=== PATIENT | female | born 1995 | race Caucasian/White ===

== ENCOUNTER 2017-06-21 15:48 | Inpatient (IN) | payer SELFPAY ==
[~2017-06-21] VITALS: Ht 160 cm; Wt 64.0 kg
[2017-06-21 17:23] VITALS: BP 142/84
[2017-06-21] MEDS ORDERED: ONDANSETRON PF 4 MG/2 ML VIAL. IV PRN (18:45)
[2017-06-21] MEDS ORDERED: MORPHINE SULFATE 2 MG/ML DISP.SYRIN. IV PRN (18:45)
[2017-06-21 19:00] VITALS: BP 102/67
[2017-06-21] MEDS: POTASSIUM CL 30MEQ D5-0.45NACL 1,000 ML IV SCH (19:35)
--- NOTE | 2017-06-21 20:40 | HP ---
ADMIT DATE: 06/21/2017 CHIEF COMPLAINT: Abdominal pain, nausea, vomiting. HISTORY OF PRESENT ILLNESS: The patient is a 22-year-old fairly healthy woman who presented to the Emergency Room twice in the past 4 days with abdominal pain. She relates that she started having right-sided abdominal pain accompanied by nausea and vomiting since Tuesday. She actually went to the Emergency Room on Tuesday and was told that this was probably a viral gastroenteritis and symptoms should resolve. However, as this not occurred and pain actually got more intense and she vomited blood x 1 this morning, she decided to come back to the Emergency Room. As she is living in [place], [facility] was the closest location for her. She denies any fevers, but had shaking chills off and on. She also admits to in frequent diarrhea over the past 4 days, loose watery with mucus. Denies any blood. She denies any other symptoms including shortness of breath, chest pain, upper respiratory symptoms or dysuria. In her workup in the Emergency Room, CAT scan actually did not show appendicitis or cholecystitis, but some signs of enteritis. In her labs, the only abnormality was a total bilirubin of 4.0 with completely normal transaminases and alkaline phosphatase. The patient is therefore transferred to [facility] for further workup including surgical and gastroenterology evaluation. PAST MEDICAL HISTORY: None. FAMILY HISTORY: No significant disorders in parents. Grandparents with bladder cancer, heart disease, and strokes. SOCIAL HISTORY: Lives with family. No toxic habits, never smoked. ALLERGIES: No known drug allergies. MEDICATIONS: None. REVIEW OF SYSTEMS: Positive as per HPI. Rest of organ system review is completely negative. PHYSICAL EXAMINATION: VITAL SIGNS: From today show a blood pressure of 142/84, heart rate of 115, respiratory rate at 20. She is afebrile. GENERAL: This is a petite 22-year-old well-nourished woman, alert and oriented, in no acute distress. HEENT: Shows no scleral icterus. Oral mucosa is pink and moist. NECK: Supple. LUNGS: Clear to auscultation bilateral. HEART: Tachycardic. ABDOMEN: Has moderate to severe tenderness, increasing in severity on right side from the lower to upper quadrant. EXTREMITIES: Show no edema. SKIN: Warm, soft and dry without any rash. LABORATORY DATA: From [facility] were reviewed with pertinent labs as above. IMAGING: CT report from [facility] reviewed. ASSESSMENT AND PLAN: The patient is a 22-year-old with severe abdominal pain accompanied by nausea, who re-presented to the Emergency Room for the second time in 4 days. Her nausea currently is well controlled after having received Zofran. She has not received any pain medications in the ER at [facility]. We will make Toradol and morphine available for her. She will be kept n.p.o. for the time being. IV fluids will be started. The etiology of her abdominal pain is somewhat unclear. No sign of cholecystitis or appendicitis per CAT scan. We will keep her under observation for now. GI and surgical consults will be obtained. We will also obtain right upper quadrant ultrasound. LASHANDA ESTEBAN MD DR: UR/nts JOB#: [id number] / [id number] SONAL
[2017-06-21] MEDS ORDERED: MORPHINE SULFATE 4 MG/ML DISP.SYRIN. IV PRN (22:39)
[2017-06-21 23:00] VITALS: BP 97/64
[2017-06-22 03:00] VITALS: BP 91/57
[2017-06-22 04:47] LABS: BASO # 0.1 x10^3/uL (0.0-0.2); BASO % 1 % (0-3); EOS % 10 % (0-3); HEMATOCRIT 36.7 % (36.0-47.0); HEMOGLOBIN 12.9 g/dL (12.0-15.5); LYMPH # 4.1 x10^3/uL (1.0-4.8); LYMPH % 46 % (24-48); MEAN CORPUSCULAR HEMOGLOBIN 33 pg (25-35); MEAN CORPUSCULAR HGB CONC 35 g/dL (31-37); MEAN CORPUSCULAR VOLUME 96 fL (79-100); MONO % 10 % (0-9); NEUT % 34 % (31-73); PLATELET COUNT 183 x10^3/uL (140-400); RED BLOOD COUNT 3.84 x10^6/uL (3.50-5.40); RED CELL DISTRIBUTION WIDTH 11.7 % (11.5-14.5); WHITE BLOOD COUNT 8.9 x10^3/uL (4.0-11.0)
[2017-06-22 05:08] LABS: ALBUMIN 3.4 g/dL (3.4-5.0); ALBUMIN/GLOBULIN RATIO 1.2 (1.0-1.7); CALCIUM 8.3 mg/dL (8.5-10.1); CREATININE 0.8 mg/dL (0.6-1.0); GFR 91.4; POTASSIUM 3.7 mmol/L (3.5-5.1); TOTAL BILIRUBIN 2.8 mg/dL (0.2-1.0); TOTAL PROTEIN 6.3 g/dL (6.4-8.2)
[2017-06-22 07:00] VITALS: BP 133/91
--- NOTE | 2017-06-22 07:32 | RAD ---
Right upper quadrant abdominal ultrasound, 06/21/2017: History: Right upper quadrant pain The gallbladder is within normal limits in size. There is no sonographic evidence of cholelithiasis. The gallbladder caruso are not thickened. The common hepatic duct is of normal caliber. The visualized portions of the liver, pancreas and right kidney are unremarkable. IMPRESSION: No significant abnormality is detected.
[2017-06-22] MEDS: KETOROLAC 30 MG/ML INJ. IV PRN ×2 (08:11→16:22)
[2017-06-22] MEDS ORDERED: PROMETHAZINE 12.5 MG in IV DEXTROSE 5% 50 ML IV ONE (09:00)
[2017-06-22] MEDS: POTASSIUM CL 30MEQ D5-0.45NACL 1,000 ML IV SCH ×2 (09:14→21:13)
[2017-06-22] MEDS ORDERED: PROMETHAZINE 12.5 MG SUPP.RECT. PR PRN (09:30)
[2017-06-22] MEDS ORDERED: ACETAMINOPHEN 325 MG TABLET. PO PRN (09:30)
[2017-06-22] MEDS ORDERED: hydrALAZINE 20 MG/ML VIAL. IVP PRN (09:30)
[2017-06-22] MEDS ORDERED: MORPHINE SULFATE 2 MG/ML DISP.SYRIN. IV PRN (09:30)
[2017-06-22] MEDS ORDERED: DOCUSATE SODIUM 100 MG CAPSULE. PO PRN (09:30)
[2017-06-22] MEDS ORDERED: ONDANSETRON PF 4 MG/2 ML VIAL. IV PRN (09:30)
[2017-06-22] MEDS ORDERED: traMADol 50 MG TABLET PO PRN (09:30)
[2017-06-22] MEDS ORDERED: MORPHINE SULFATE 4 MG/ML DISP.SYRIN. IV PRN ×2 (09:41→09:45)
--- NOTE | 2017-06-22 10:29 | PDOC2 ---
GI CONSULT Reason For Consult: R/o cholelithiasis HPI: HPI: 22 y/o female transferred from [facility]. Has been ill since Tuesday, possibly after eating at [employer] the night before. Has RUQ pain (worse w/ laying down, better w/ sitting up) and n/v (unable to tolerate PO). Associated w/ chills. Yesterday vomited a streak of red clot followed by a "clot." Bleeding has not recurred. Has also had some diarrhea that "looks like phlegm. " CT A/P and RUQ US unrevealing. Labs w/ WBC 11.9 (now 8.9), Hgb 16.7 (now 12.9 w / hydration), Cr 1.1 (now 0.8), BUN 19 (now 15), bili 4 (now 2.8), AST 18 (now 12), ALT 28 (now 18), Alk Phos 54 (now 39). On IV PPI. Did have previous ER eval, was given PCN and NSAID Rx. No GI history (or PMH). Denies reflux/heartburn, dysphagia, chronic abd pain or diarrhea, melena, hematochezia. No NSAID use. No previous EGD or colonoscopy. No liver, pancreas, or GB history. Stays at home and cares for boyfriend's kids, ages 7 and 11. No sick contacts. PMH: PMH: denies FH: Family History: Cancer (GM - bladder cancer) Social History: Smoke: No ALCOHOL: none Drugs: None ROS: GEN: +chills HEENT: Denies blurred vision, sore throat CV: Denies chest pain RESP: Denies shortness of air, cough GI: Per HPI : Denies hematuria, dysuria ENDO: Denies weight changes NEURO: Denies confusion, dizziness MSK: Denies weakness, joint pain/swelling SKIN: Denies jaundice, pruritus Vitals: Vitals: Vital Signs Date Time Temp Pulse Resp B/P (MAP) Pulse Ox O2 Delivery O2 Flow Rate FiO2 06/22/17 09:52 100 Room Air 06/22/17 07:00 98.0 63 18 133/91 (105) 98.0 Labs: Labs: Laboratory Tests Test 06/22/17 03:45 White Blood Count 8.9 x10^3/uL (4.0-11.0) Red Blood Count 3.84 x10^6/uL (3.50-5.40) Hemoglobin 12.9 g/dL (12.0-15.5) Hematocrit 36.7 % (36.0-47.0) Mean Corpuscular Volume 96 fL (79-100) Mean Corpuscular Hemoglobin 33 pg (25-35) Mean Corpuscular Hemoglobin Concent 35 g/dL (31-37) Red Cell Distribution Width 11.7 % (11.5-14.5) Platelet Count 183 x10^3/uL (140-400) Neutrophils (%) (Auto) 34 % (31-73) Lymphocytes (%) (Auto) 46 % (24-48) Monocytes (%) (Auto) 10 % (0-9) Eosinophils (%) (Auto) 10 % (0-3) Basophils (%) (Auto) 1 % (0-3) Neutrophils # (Auto) 3.0 x10^3uL (1.8-7.7) Lymphocytes # (Auto) 4.1 x10^3/uL (1.0-4.8) Monocytes # (Auto) 0.9 x10^3/uL (0.0-1.1) Eosinophils # (Auto) 0.9 x10^3/uL (0.0-0.7) Basophils # (Auto) 0.1 x10^3/uL (0.0-0.2) Sodium Level 139 mmol/L (136-145) Potassium Level 3.7 mmol/L (3.5-5.1) Chloride Level 107 mmol/L (98-107) Carbon Dioxide Level 25 mmol/L (21-32) Anion Gap 7 (6-14) Blood Urea Nitrogen 15 mg/dL (7-20) Creatinine 0.8 mg/dL (0.6-1.0) Estimated GFR (Cockcroft-Gault) 91.4 BUN/Creatinine Ratio 19 (6-20) Glucose Level 93 mg/dL (70-99) Calcium Level 8.3 mg/dL (8.5-10.1) Total Bilirubin 2.8 mg/dL (0.2-1.0) Aspartate Amino Transf (AST/SGOT) 12 U/L (15-37) Alanine Aminotransferase (ALT/SGPT) 18 U/L (14-59) Alkaline Phosphatase 39 U/L (46-116) Total Protein 6.3 g/dL (6.4-8.2) Albumin 3.4 g/dL (3.4-5.0) Albumin/Globulin Ratio 1.2 (1.0-1.7) Allergies: Coded Allergies: No Known Drug Allergies (Unverified , 12/25/13) Medications: Current Medications Medications (Trade) Dose Ordered Sig/Jose Luis Route PRN Reason Start Time Stop Time Status Last Admin Dose Admin Ketorolac Tromethamine (Toradol) 30 mg PRN Q6HRS PRN IV PAIN 06/21/17 18:45 06/26/17 18:44 06/22/17 08:11 Ondansetron HCl (Zofran) 4 mg PRN Q6HRS PRN IV NAUSEA/VOMITING 06/21/17 18:45 06/22/17 08:11 Potassium Chloride/Dextrose/ Sod Cl 1,000 ml @ 75 mls/hr [id number] IV 06/21/17 18:45 06/22/17 09:14 Morphine Sulfate 2 mg PRN Q4HRS PRN IV SEVERE PAIN 06/21/17 22:39 06/22/17 09:31 DC 06/21/17 22:48 Promethazine HCl 12.5 mg/Dextrose 50.5 ml @ 101 mls/hr 1X ONCE IV 06/22/17 09:00 06/22/17 09:29 DC 06/22/17 09:13 Morphine Sulfate 2 mg PRN Q2HR PRN IV PAIN 06/22/17 09:41 06/22/17 09:52 Imaging: Imaging: [facility] US IMPRESSION: No significant abnormality is detected. CT A/P 1. Radiopaque material in the appendix w/o evidence of acute appendicitis. 2. Milkd diffuse bladder wall thickening, probably related to lack of bladder distention. Cystitis cannot be excluded. PE: GEN: holding basin w/ bilious emesis HEENT: Atraumatic, PERRL LUNGS: CTAB HEART: RRR ABD: BS+, significant epigastric tenderness toward RUQ EXTREMITY: No edema SKIN: No rashes, no jaundice NEURO/PSYCH: A & O 3 A/P: A/P: Abd pain (epigastric/RUQ), n/v, loose stools, chills -imaging unrevealing ?hematemesis -once yesterday, no recurrence -Hgb and BUN remain WNL Abnormal LFTs -improved -- ?infectious, can check Norovirus Agree w/ PPI. Will review w/ Dr. Carvajal. MYAH DUVAL Jun 22, 2017 10:29
[2017-06-22 11:00] VITALS: BP 133/70
[2017-06-22] MEDS: PANTOPRAZOLE IV PUSH 40 MG VIAL. IVP SCH (12:10)
--- NOTE | 2017-06-22 12:39 | PDOC2 ---
CONSULT Date of Consult Date of Consult DATE: 06/22/17 TIME: 12:34 Reason for Consult Reason for Consult: abd pain Referring Physician Referring Physician: Niharika Identification/Chief Complaint Chief Complaint abd pain, diarrhea Problems: Source Source: Patient History of Present Illness Reason for Visit: 22 yo F with multiple ER visits for abd pain (RUQ), N/V, diarrhea. Positive for chills. Appears to be started after eating fast food. Past Medical History Cardiovascular: No pertinent hx Past Surgical History Past Surgical History: No pertinent history Family History Family History: No Significant Social History No ALCOHOL: none Drugs: None Current Medications Current Medications Current Medications Ketorolac Tromethamine (Toradol) 30 mg PRN Q6HRS PRN IV PAIN Last administered on 06/22/17 08:11; Start 06/21/17 at 18:45; Stop 06/26/17 at 18:44 Morphine Sulfate 2 mg PRN Q4HRS PRN IV PAIN; Start 06/21/17 at 18:45; Stop at 22:39; Status DC Ondansetron HCl (Zofran) 4 mg PRN Q6HRS PRN IV NAUSEA/VOMITING Last administered on 06/22/17 08:11; Start 06/21/17 at 18:45 Potassium Chloride/Dextrose/ Sod Cl 1,000 ml @ 75 mls/hr [id number] IV Last administered on 06/22/17 09:14; Start 06/21/17 at 18:45 Morphine Sulfate 2 mg PRN Q4HRS PRN IV SEVERE PAIN Last administered on 22:48; Start 06/21/17 at 22:39; Stop 06/22/17 at 09:31; Status DC Promethazine HCl 12.5 mg/Dextrose 50.5 ml @ 101 mls/hr 1X ONCE IV Last administered on 06/22/17 09:13; Start 06/22/17 at 09:00; Stop 06/22/17 at 09 :29; Status DC Promethazine HCl (Phenergan) 12.5 mg PRN Q6HRS PRN CA NAUSEA/VOMITING; Start 06/22/17 at 09:30 Acetaminophen (Tylenol) 650 mg PRN Q6HRS PRN PO FEVER; Start 06/22/17 at 09:30 Ondansetron HCl (Zofran) 4 mg PRN Q6HRS PRN IV NAUSEA/VOMITING; Start at 09:30 Morphine Sulfate 2 mg PRN Q2HR PRN IV PAIN; Start 06/22/17 at 09:30; Stop at 09:41; Status DC Tramadol HCl (Ultram) 50 mg PRN Q6HRS PRN PO PAIN; Start 06/22/17 at 09:30 Hydralazine HCl (Apresoline Inj) 10 mg PRN Q4HRS PRN IVP ELEVATED BP, SEE COMMENTS; Start 06/22/17 at 09:30 Docusate Sodium (Colace) 100 mg PRN DAILY PRN PO CONSTIPATION; Start 06/22/17 at 09:30 Pantoprazole Sodium (Protonix Vial) 40 mg DAILYAC IVP Last administered on t 12:10; Start 06/22/17 at 11:30 Morphine Sulfate 4 mg PRN Q4HRS PRN IV SEVERE PAIN; Start 06/22/17 at 09:45 Morphine Sulfate 2 mg PRN Q2HR PRN IV PAIN Last administered on 06/22/17 09: 52; Start 06/22/17 at 09:41 Active Scripts Active No Active Prescriptions or Reported Medications Allergies Allergies: Coded Allergies: No Known Drug Allergies (Unverified , 12/25/13) ROS General: YES: Chills Gastrointestinal: Yes Nausea, Yes Vomiting, Yes Abdominal Pain Physical Exam General: Alert, Oriented X3, Cooperative, mild distress HEENT: Atraumatic, EOMI Lungs: Normal air movement Abdomen: Other (mild TTP RUQ, no masses no hernias) Extremities: No clubbing, No cyanosis Skin: No rashes, No breakdown Neuro: Normal speech, Sensation intact Psych/Mental Status: Mental status NL, Mood NL Vitals VITALS Vital Signs Date Time Temp Pulse Resp B/P (MAP) Pulse Ox O2 Delivery O2 Flow Rate FiO2 06/22/17 11:00 98.8 70 18 133/70 (91) 99 Room Air 98.8 Labs Labs Laboratory Tests Test 06/22/17 03:45 White Blood Count 8.9 x10^3/uL (4.0-11.0) Red Blood Count 3.84 x10^6/uL (3.50-5.40) Hemoglobin 12.9 g/dL (12.0-15.5) Hematocrit 36.7 % (36.0-47.0) Mean Corpuscular Volume 96 fL (79-100) Mean Corpuscular Hemoglobin 33 pg (25-35) Mean Corpuscular Hemoglobin Concent 35 g/dL (31-37) Red Cell Distribution Width 11.7 % (11.5-14.5) Platelet Count 183 x10^3/uL (140-400) Neutrophils (%) (Auto) 34 % (31-73) Lymphocytes (%) (Auto) 46 % (24-48) Monocytes (%) (Auto) 10 % (0-9) Eosinophils (%) (Auto) 10 % (0-3) Basophils (%) (Auto) 1 % (0-3) Neutrophils # (Auto) 3.0 x10^3uL (1.8-7.7) Lymphocytes # (Auto) 4.1 x10^3/uL (1.0-4.8) Monocytes # (Auto) 0.9 x10^3/uL (0.0-1.1) Eosinophils # (Auto) 0.9 x10^3/uL (0.0-0.7) Basophils # (Auto) 0.1 x10^3/uL (0.0-0.2) Sodium Level 139 mmol/L (136-145) Potassium Level 3.7 mmol/L (3.5-5.1) Chloride Level 107 mmol/L (98-107) Carbon Dioxide Level 25 mmol/L (21-32) Anion Gap 7 (6-14) Blood Urea Nitrogen 15 mg/dL (7-20) Creatinine 0.8 mg/dL (0.6-1.0) Estimated GFR (Cockcroft-Gault) 91.4 BUN/Creatinine Ratio 19 (6-20) Glucose Level 93 mg/dL (70-99) Calcium Level 8.3 mg/dL (8.5-10.1) Total Bilirubin 2.8 mg/dL (0.2-1.0) Aspartate Amino Transf (AST/SGOT) 12 U/L (15-37) Alanine Aminotransferase (ALT/SGPT) 18 U/L (14-59) Alkaline Phosphatase 39 U/L (46-116) Total Protein 6.3 g/dL (6.4-8.2) Albumin 3.4 g/dL (3.4-5.0) Albumin/Globulin Ratio 1.2 (1.0-1.7) Laboratory Tests Test 06/22/17 03:45 White Blood Count 8.9 x10^3/uL (4.0-11.0) Red Blood Count 3.84 x10^6/uL (3.50-5.40) Hemoglobin 12.9 g/dL (12.0-15.5) Hematocrit 36.7 % (36.0-47.0) Mean Corpuscular Volume 96 fL (79-100) Mean Corpuscular Hemoglobin 33 pg (25-35) Mean Corpuscular Hemoglobin Concent 35 g/dL (31-37) Red Cell Distribution Width 11.7 % (11.5-14.5) Platelet Count 183 x10^3/uL (140-400) Neutrophils (%) (Auto) 34 % (31-73) Lymphocytes (%) (Auto) 46 % (24-48) Monocytes (%) (Auto) 10 % (0-9) Eosinophils (%) (Auto) 10 % (0-3) Basophils (%) (Auto) 1 % (0-3) Neutrophils # (Auto) 3.0 x10^3uL (1.8-7.7) Lymphocytes # (Auto) 4.1 x10^3/uL (1.0-4.8) Monocytes # (Auto) 0.9 x10^3/uL (0.0-1.1) Eosinophils # (Auto) 0.9 x10^3/uL (0.0-0.7) Basophils # (Auto) 0.1 x10^3/uL (0.0-0.2) Sodium Level 139 mmol/L (136-145) Potassium Level 3.7 mmol/L (3.5-5.1) Chloride Level 107 mmol/L (98-107) Carbon Dioxide Level 25 mmol/L (21-32) Anion Gap 7 (6-14) Blood Urea Nitrogen 15 mg/dL (7-20) Creatinine 0.8 mg/dL (0.6-1.0) Estimated GFR (Cockcroft-Gault) 91.4 BUN/Creatinine Ratio 19 (6-20) Glucose Level 93 mg/dL (70-99) Calcium Level 8.3 mg/dL (8.5-10.1) Total Bilirubin 2.8 mg/dL (0.2-1.0) Aspartate Amino Transf (AST/SGOT) 12 U/L (15-37) Alanine Aminotransferase (ALT/SGPT) 18 U/L (14-59) Alkaline Phosphatase 39 U/L (46-116) Total Protein 6.3 g/dL (6.4-8.2) Albumin 3.4 g/dL (3.4-5.0) Albumin/Globulin Ratio 1.2 (1.0-1.7) Images Images CT and US unrevealing Assessment/Plan Assessment/Plan favor gastroenteritis agree with GI w/u agree with IVF and supportive care no surgical plans currently Thanks for consult! AMANDA SALAS MD Jun 22, 2017 12:39
--- NOTE | 2017-06-22 12:51 | PDOC ---
PROGRESS NOTES Chief Complaint Chief Complaint abd pain with N/V, gastroenteritis slightly elevated total bili plan: fu with sx , gi npo for now if not much N/V, may try clear liquid diet ivf ppi daily iv dvt ppx US abd neg, abd CT not significant GES given cont N/V for 1 week as per pt pain control History of Present Illness History of Present Illness ROS: no fever, chills, sob or chest pain cont abd pain 8/10, with nausea severe tender moaning required iv morphine wo improvement Vitals Vitals Vital Signs Date Time Temp Pulse Resp B/P (MAP) Pulse Ox O2 Delivery O2 Flow Rate FiO2 06/22/17 11:00 98.8 70 18 133/70 (91) 99 Room Air 98.8 Physical Exam General: Alert, Oriented X3, Cooperative, mild distress Heart: Regular rate, Normal S1, Normal S2 Lungs: Clear Abdomen: Normal bowel sounds, Soft, Other (epigastric and RUQ moderate to severe tenderness, no guarding or rebound) Extremities: No clubbing, No cyanosis Skin: No rashes, No breakdown Labs LABS Laboratory Tests Test 06/22/17 03:45 White Blood Count 8.9 x10^3/uL (4.0-11.0) Red Blood Count 3.84 x10^6/uL (3.50-5.40) Hemoglobin 12.9 g/dL (12.0-15.5) Hematocrit 36.7 % (36.0-47.0) Mean Corpuscular Volume 96 fL (79-100) Mean Corpuscular Hemoglobin 33 pg (25-35) Mean Corpuscular Hemoglobin Concent 35 g/dL (31-37) Red Cell Distribution Width 11.7 % (11.5-14.5) Platelet Count 183 x10^3/uL (140-400) Neutrophils (%) (Auto) 34 % (31-73) Lymphocytes (%) (Auto) 46 % (24-48) Monocytes (%) (Auto) 10 % (0-9) Eosinophils (%) (Auto) 10 % (0-3) Basophils (%) (Auto) 1 % (0-3) Neutrophils # (Auto) 3.0 x10^3uL (1.8-7.7) Lymphocytes # (Auto) 4.1 x10^3/uL (1.0-4.8) Monocytes # (Auto) 0.9 x10^3/uL (0.0-1.1) Eosinophils # (Auto) 0.9 x10^3/uL (0.0-0.7) Basophils # (Auto) 0.1 x10^3/uL (0.0-0.2) Sodium Level 139 mmol/L (136-145) Potassium Level 3.7 mmol/L (3.5-5.1) Chloride Level 107 mmol/L (98-107) Carbon Dioxide Level 25 mmol/L (21-32) Anion Gap 7 (6-14) Blood Urea Nitrogen 15 mg/dL (7-20) Creatinine 0.8 mg/dL (0.6-1.0) Estimated GFR (Cockcroft-Gault) 91.4 BUN/Creatinine Ratio 19 (6-20) Glucose Level 93 mg/dL (70-99) Calcium Level 8.3 mg/dL (8.5-10.1) Total Bilirubin 2.8 mg/dL (0.2-1.0) Aspartate Amino Transf (AST/SGOT) 12 U/L (15-37) Alanine Aminotransferase (ALT/SGPT) 18 U/L (14-59) Alkaline Phosphatase 39 U/L (46-116) Total Protein 6.3 g/dL (6.4-8.2) Albumin 3.4 g/dL (3.4-5.0) Albumin/Globulin Ratio 1.2 (1.0-1.7) Comment Review of Relevant I have reviewed the following items fabricio (where applicable) has been applied. Labs Laboratory Tests Test 06/22/17 03:45 White Blood Count 8.9 x10^3/uL (4.0-11.0) Red Blood Count 3.84 x10^6/uL (3.50-5.40) Hemoglobin 12.9 g/dL (12.0-15.5) Hematocrit 36.7 % (36.0-47.0) Mean Corpuscular Volume 96 fL (79-100) Mean Corpuscular Hemoglobin 33 pg (25-35) Mean Corpuscular Hemoglobin Concent 35 g/dL (31-37) Red Cell Distribution Width 11.7 % (11.5-14.5) Platelet Count 183 x10^3/uL (140-400) Neutrophils (%) (Auto) 34 % (31-73) Lymphocytes (%) (Auto) 46 % (24-48) Monocytes (%) (Auto) 10 % (0-9) Eosinophils (%) (Auto) 10 % (0-3) Basophils (%) (Auto) 1 % (0-3) Neutrophils # (Auto) 3.0 x10^3uL (1.8-7.7) Lymphocytes # (Auto) 4.1 x10^3/uL (1.0-4.8) Monocytes # (Auto) 0.9 x10^3/uL (0.0-1.1) Eosinophils # (Auto) 0.9 x10^3/uL (0.0-0.7) Basophils # (Auto) 0.1 x10^3/uL (0.0-0.2) Sodium Level 139 mmol/L (136-145) Potassium Level 3.7 mmol/L (3.5-5.1) Chloride Level 107 mmol/L (98-107) Carbon Dioxide Level 25 mmol/L (21-32) Anion Gap 7 (6-14) Blood Urea Nitrogen 15 mg/dL (7-20) Creatinine 0.8 mg/dL (0.6-1.0) Estimated GFR (Cockcroft-Gault) 91.4 BUN/Creatinine Ratio 19 (6-20) Glucose Level 93 mg/dL (70-99) Calcium Level 8.3 mg/dL (8.5-10.1) Total Bilirubin 2.8 mg/dL (0.2-1.0) Aspartate Amino Transf (AST/SGOT) 12 U/L (15-37) Alanine Aminotransferase (ALT/SGPT) 18 U/L (14-59) Alkaline Phosphatase 39 U/L (46-116) Total Protein 6.3 g/dL (6.4-8.2) Albumin 3.4 g/dL (3.4-5.0) Albumin/Globulin Ratio 1.2 (1.0-1.7) Laboratory Tests Test 06/22/17 03:45 White Blood Count 8.9 x10^3/uL (4.0-11.0) Red Blood Count 3.84 x10^6/uL (3.50-5.40) Hemoglobin 12.9 g/dL (12.0-15.5) Hematocrit 36.7 % (36.0-47.0) Mean Corpuscular Volume 96 fL (79-100) Mean Corpuscular Hemoglobin 33 pg (25-35) Mean Corpuscular Hemoglobin Concent 35 g/dL (31-37) Red Cell Distribution Width 11.7 % (11.5-14.5) Platelet Count 183 x10^3/uL (140-400) Neutrophils (%) (Auto) 34 % (31-73) Lymphocytes (%) (Auto) 46 % (24-48) Monocytes (%) (Auto) 10 % (0-9) Eosinophils (%) (Auto) 10 % (0-3) Basophils (%) (Auto) 1 % (0-3) Neutrophils # (Auto) 3.0 x10^3uL (1.8-7.7) Lymphocytes # (Auto) 4.1 x10^3/uL (1.0-4.8) Monocytes # (Auto) 0.9 x10^3/uL (0.0-1.1) Eosinophils # (Auto) 0.9 x10^3/uL (0.0-0.7) Basophils # (Auto) 0.1 x10^3/uL (0.0-0.2) Sodium Level 139 mmol/L (136-145) Potassium Level 3.7 mmol/L (3.5-5.1) Chloride Level 107 mmol/L (98-107) Carbon Dioxide Level 25 mmol/L (21-32) Anion Gap 7 (6-14) Blood Urea Nitrogen 15 mg/dL (7-20) Creatinine 0.8 mg/dL (0.6-1.0) Estimated GFR (Cockcroft-Gault) 91.4 BUN/Creatinine Ratio 19 (6-20) Glucose Level 93 mg/dL (70-99) Calcium Level 8.3 mg/dL (8.5-10.1) Total Bilirubin 2.8 mg/dL (0.2-1.0) Aspartate Amino Transf (AST/SGOT) 12 U/L (15-37) Alanine Aminotransferase (ALT/SGPT) 18 U/L (14-59) Alkaline Phosphatase 39 U/L (46-116) Total Protein 6.3 g/dL (6.4-8.2) Albumin 3.4 g/dL (3.4-5.0) Albumin/Globulin Ratio 1.2 (1.0-1.7) Medications Current Medications Ketorolac Tromethamine (Toradol) 30 mg PRN Q6HRS PRN IV PAIN Last administered on 06/22/17 08:11; Start 06/21/17 at 18:45; Stop 06/26/17 at 18:44 Morphine Sulfate 2 mg PRN Q4HRS PRN IV PAIN; Start 06/21/17 at 18:45; Stop at 22:39; Status DC Ondansetron HCl (Zofran) 4 mg PRN Q6HRS PRN IV NAUSEA/VOMITING Last administered on 06/22/17 08:11; Start 06/21/17 at 18:45 Potassium Chloride/Dextrose/ Sod Cl 1,000 ml @ 75 mls/hr [id number] IV Last administered on 06/22/17 09:14; Start 06/21/17 at 18:45 Morphine Sulfate 2 mg PRN Q4HRS PRN IV SEVERE PAIN Last administered on 22:48; Start 06/21/17 at 22:39; Stop 06/22/17 at 09:31; Status DC Promethazine HCl 12.5 mg/Dextrose 50.5 ml @ 101 mls/hr 1X ONCE IV Last administered on 06/22/17 09:13; Start 06/22/17 at 09:00; Stop 06/22/17 at 09 :29; Status DC Promethazine HCl (Phenergan) 12.5 mg PRN Q6HRS PRN NC NAUSEA/VOMITING; Start 06/22/17 at 09:30 Acetaminophen (Tylenol) 650 mg PRN Q6HRS PRN PO FEVER; Start 06/22/17 at 09:30 Ondansetron HCl (Zofran) 4 mg PRN Q6HRS PRN IV NAUSEA/VOMITING; Start at 09:30 Morphine Sulfate 2 mg PRN Q2HR PRN IV PAIN; Start 06/22/17 at 09:30; Stop at 09:41; Status DC Tramadol HCl (Ultram) 50 mg PRN Q6HRS PRN PO PAIN; Start 06/22/17 at 09:30 Hydralazine HCl (Apresoline Inj) 10 mg PRN Q4HRS PRN IVP ELEVATED BP, SEE COMMENTS; Start 06/22/17 at 09:30 Docusate Sodium (Colace) 100 mg PRN DAILY PRN PO CONSTIPATION; Start 06/22/17 at 09:30 Pantoprazole Sodium (Protonix Vial) 40 mg DAILYAC IVP Last administered on 12:10; Start 06/22/17 at 11:30 Morphine Sulfate 4 mg PRN Q4HRS PRN IV SEVERE PAIN; Start 06/22/17 at 09:45 Morphine Sulfate 2 mg PRN Q2HR PRN IV PAIN Last administered on 06/22/17 09: 52; Start 06/22/17 at 09:41 Active Scripts Active No Active Prescriptions or Reported Medications Vitals/I & O Vital Sign - Last 24 Hours 06/21/17 06/21/17 06/21/17 06/21/17 17:23 17:44 19:00 19:40 Temp 98.8 99.1 98.8 99.1 Pulse 115 66 Resp 20 B/P (MAP) 142/84 (103) 102/67 (79) Pulse Ox 98 94 O2 Delivery Room Air Room Air Room Air Room Air 06/21/17 06/21/17 06/21/17 06/21/17 19:45 22:48 23:00 23:18 Temp 98.1 98.1 Pulse 57 Resp 16 16 B/P (MAP) 97/64 (75) Pulse Ox 98 O2 Delivery Room Air Room Air Room Air Room Air 06/22/17 06/22/17 06/22/17 06/22/17 03:00 07:00 09:52 10:22 Temp 98.1 98.0 98.1 98.0 Pulse 76 63 Resp 18 B/P (MAP) 91/57 (68) 133/91 (105) Pulse Ox 97 100 100 100 O2 Delivery Room Air Room Air Room Air Room Air 06/22/17 11:00 Temp 98.8 98.8 Pulse 70 Resp 18 B/P (MAP) 133/70 (91) Pulse Ox 99 O2 Delivery Room Air Intake and Output 06/21/17 06/21/17 06/22/17 14:59 22:59 06:59 Intake Total 1650 ml Balance 1650 ml JENNY HEIN MD Jun 22, 2017 12:51
[2017-06-22 15:00] VITALS: BP 113/75
[2017-06-22 19:00] VITALS: BP 129/86
[2017-06-22] MEDS ORDERED: PROMETHAZINE 12.5 MG in IV DEXTROSE 5% 50 ML IV PRN (19:15)
[2017-06-22 23:00] VITALS: BP 121/82
[2017-06-23 03:00] VITALS: BP 117/76
[2017-06-23 05:16] LABS: BASO % 0 % (0-3); EOS % 3 % (0-3); HEMATOCRIT 40.7 % (36.0-47.0); HEMOGLOBIN 14.3 g/dL (12.0-15.5); LYMPH # 2.3 x10^3/uL (1.0-4.8); LYMPH % 29 % (24-48); MEAN CORPUSCULAR HEMOGLOBIN 33 pg (25-35); MEAN CORPUSCULAR HGB CONC 35 g/dL (31-37); MEAN CORPUSCULAR VOLUME 95 fL (79-100); MONO % 13 % (0-9); NEUT % 55 % (31-73); PLATELET COUNT 196 x10^3/uL (140-400); RED BLOOD COUNT 4.29 x10^6/uL (3.50-5.40); RED CELL DISTRIBUTION WIDTH 11.4 % (11.5-14.5)
[2017-06-23 05:58] LABS: CALCIUM 8.8 mg/dL (8.5-10.1); CREATININE 0.8 mg/dL (0.6-1.0); GFR 91.4; POTASSIUM 3.7 mmol/L (3.5-5.1)
[2017-06-23 07:00] VITALS: BP 120/84
[2017-06-23 08:34] LABS: ALBUMIN 3.9 g/dL (3.4-5.0); DIRECT BILIRUBIN 0.3 mg/dL (0.0-0.2); TOTAL PROTEIN 7.4 g/dL (6.4-8.2)
[2017-06-23] MEDS: PANTOPRAZOLE IV PUSH 40 MG VIAL. IVP SCH (08:41)
[2017-06-23] MEDS: KETOROLAC 30 MG/ML INJ. IV PRN (08:42)
[2017-06-23] MEDS: POTASSIUM CL 30MEQ D5-0.45NACL 1,000 ML IV SCH (10:45)
[2017-06-23 11:00] VITALS: BP 128/81
--- NOTE | 2017-06-23 12:09 | PDOC ---
SURGICAL PROGRESS NOTE Subjective Pt very interested in going home, carmen PO for several hours, passing stool, reports previous pain resolved Vital Signs Vital Signs Date Time Temp Pulse Resp B/P (MAP) Pulse Ox O2 Delivery O2 Flow Rate FiO2 06/23/17 07:00 97.9 68 18 120/84 (96) Room Air 99.0 97.9 06/23/17 03:00 98 General: Alert, Oriented X3, Cooperative, Other (teary eyed when requesting to d/c) Abdomen: Soft, No tenderness Labs Laboratory Tests Test 06/22/17 03:45 06/23/17 03:25 White Blood Count 8.9 x10^3/uL (4.0-11.0) 8.0 x10^3/uL (4.0-11.0) Red Blood Count 3.84 x10^6/uL (3.50-5.40) 4.29 x10^6/uL (3.50-5.40) Hemoglobin 12.9 g/dL (12.0-15.5) 14.3 g/dL (12.0-15.5) Hematocrit 36.7 % (36.0-47.0) 40.7 % (36.0-47.0) Mean Corpuscular Volume 96 fL (79-100) 95 fL (79-100) Mean Corpuscular Hemoglobin 33 pg (25-35) 33 pg (25-35) Mean Corpuscular Hemoglobin Concent 35 g/dL (31-37) 35 g/dL (31-37) Red Cell Distribution Width 11.7 % (11.5-14.5) 11.4 % (11.5-14.5) Platelet Count 183 x10^3/uL (140-400) 196 x10^3/uL (140-400) Neutrophils (%) (Auto) 34 % (31-73) 55 % (31-73) Lymphocytes (%) (Auto) 46 % (24-48) 29 % (24-48) Monocytes (%) (Auto) 10 % (0-9) 13 % (0-9) Eosinophils (%) (Auto) 10 % (0-3) 3 % (0-3) Basophils (%) (Auto) 1 % (0-3) 0 % (0-3) Neutrophils # (Auto) 3.0 x10^3uL (1.8-7.7) 4.4 x10^3uL (1.8-7.7) Lymphocytes # (Auto) 4.1 x10^3/uL (1.0-4.8) 2.3 x10^3/uL (1.0-4.8) Monocytes # (Auto) 0.9 x10^3/uL (0.0-1.1) 1.0 x10^3/uL (0.0-1.1) Eosinophils # (Auto) 0.9 x10^3/uL (0.0-0.7) 0.3 x10^3/uL (0.0-0.7) Basophils # (Auto) 0.1 x10^3/uL (0.0-0.2) 0.0 x10^3/uL (0.0-0.2) Sodium Level 139 mmol/L (136-145) 136 mmol/L (136-145) Potassium Level 3.7 mmol/L (3.5-5.1) 3.7 mmol/L (3.5-5.1) Chloride Level 107 mmol/L (98-107) 103 mmol/L (98-107) Carbon Dioxide Level 25 mmol/L (21-32) 23 mmol/L (21-32) Anion Gap 7 (6-14) 10 (6-14) Blood Urea Nitrogen 15 mg/dL (7-20) 8 mg/dL (7-20) Creatinine 0.8 mg/dL (0.6-1.0) 0.8 mg/dL (0.6-1.0) Estimated GFR (Cockcroft-Gault) 91.4 91.4 BUN/Creatinine Ratio 19 (6-20) Glucose Level 93 mg/dL (70-99) 98 mg/dL (70-99) Calcium Level 8.3 mg/dL (8.5-10.1) 8.8 mg/dL (8.5-10.1) Total Bilirubin 2.8 mg/dL (0.2-1.0) 3.0 mg/dL (0.2-1.0) Aspartate Amino Transf (AST/SGOT) 12 U/L (15-37) 16 U/L (15-37) Alanine Aminotransferase (ALT/SGPT) 18 U/L (14-59) 18 U/L (14-59) Alkaline Phosphatase 39 U/L (46-116) 46 U/L (46-116) Total Protein 6.3 g/dL (6.4-8.2) 7.4 g/dL (6.4-8.2) Albumin 3.4 g/dL (3.4-5.0) 3.9 g/dL (3.4-5.0) Albumin/Globulin Ratio 1.2 (1.0-1.7) Direct Bilirubin 0.3 mg/dL (0.0-0.2) Laboratory Tests Test 06/23/17 03:25 White Blood Count 8.0 x10^3/uL (4.0-11.0) Red Blood Count 4.29 x10^6/uL (3.50-5.40) Hemoglobin 14.3 g/dL (12.0-15.5) Hematocrit 40.7 % (36.0-47.0) Mean Corpuscular Volume 95 fL (79-100) Mean Corpuscular Hemoglobin 33 pg (25-35) Mean Corpuscular Hemoglobin Concent 35 g/dL (31-37) Red Cell Distribution Width 11.4 % (11.5-14.5) Platelet Count 196 x10^3/uL (140-400) Neutrophils (%) (Auto) 55 % (31-73) Lymphocytes (%) (Auto) 29 % (24-48) Monocytes (%) (Auto) 13 % (0-9) Eosinophils (%) (Auto) 3 % (0-3) Basophils (%) (Auto) 0 % (0-3) Neutrophils # (Auto) 4.4 x10^3uL (1.8-7.7) Lymphocytes # (Auto) 2.3 x10^3/uL (1.0-4.8) Monocytes # (Auto) 1.0 x10^3/uL (0.0-1.1) Eosinophils # (Auto) 0.3 x10^3/uL (0.0-0.7) Basophils # (Auto) 0.0 x10^3/uL (0.0-0.2) Sodium Level 136 mmol/L (136-145) Potassium Level 3.7 mmol/L (3.5-5.1) Chloride Level 103 mmol/L (98-107) Carbon Dioxide Level 23 mmol/L (21-32) Anion Gap 10 (6-14) Blood Urea Nitrogen 8 mg/dL (7-20) Creatinine 0.8 mg/dL (0.6-1.0) Estimated GFR (Cockcroft-Gault) 91.4 Glucose Level 98 mg/dL (70-99) Calcium Level 8.8 mg/dL (8.5-10.1) Total Bilirubin 3.0 mg/dL (0.2-1.0) Direct Bilirubin 0.3 mg/dL (0.0-0.2) Aspartate Amino Transf (AST/SGOT) 16 U/L (15-37) Alanine Aminotransferase (ALT/SGPT) 18 U/L (14-59) Alkaline Phosphatase 46 U/L (46-116) Total Protein 7.4 g/dL (6.4-8.2) Albumin 3.9 g/dL (3.4-5.0) Problem List abd pain, resolved seems reasonable to allow d/c f/u PRN Problems: AMANDA SALAS MD Jun 23, 2017 12:09
--- NOTE | 2017-06-23 12:40 | PDOC3 ---
Discharge Summary IPC Date of Admission: Jun 21, 2017 Discharge Date: Jun 23, 2017 Admitting Diagnosis abd pain with N/V, gastroenteritis slightly elevated total bili Problems: CONSULTS sx gi Brief Hospital Course Ms. Galindo is a 22 old F, came for N/V , abd pain , some diarrhea for 1 week. likely 2/2 gastroenteritis. neg US, neg CT, total bili was found ranging from 2-4, likely chronic, such as gilberts syndrome. no abd pain today, no N/V, no diarrhea. dc time 35min General: Alert, Oriented X3, Cooperative, mild distress Heart: Regular rate, Normal S1, Normal S2 Lungs: Clear Abdomen: Normal bowel sounds, Soft, Other (epigastric and RUQ moderate to severe tenderness, no guarding or rebound) Extremities: No clubbing, No cyanosis Skin: No rashes, No breakdown Problems: Disposition home CONDITION AT DISCHARGE: Improved Diet regular No Active Prescriptions or Reported Meds Follow Up pcp in 2 weeks JENNY HEIN MD Jun 23, 2017 12:40
--- NOTE | 2017-06-23 15:12 | PDOC ---
Subjective: Subjective: Seen prior to discharge. All symptoms resolved, tolerated PO, wants to leave. No BMs. Objective: Vital Signs: Vital Signs Date Time Temp Pulse Resp B/P (MAP) Pulse Ox O2 Delivery O2 Flow Rate FiO2 06/23/17 08:00 Room Air 99.0 06/23/17 07:00 97.9 68 18 120/84 (96) 97.9 06/23/17 03:00 98 Labs: Laboratory Tests Test 06/23/17 03:25 White Blood Count 8.0 x10^3/uL Red Blood Count 4.29 x10^6/uL Hemoglobin 14.3 g/dL Hematocrit 40.7 % Mean Corpuscular Volume 95 fL Mean Corpuscular Hemoglobin 33 pg Mean Corpuscular Hemoglobin Concent 35 g/dL Red Cell Distribution Width 11.4 % Platelet Count 196 x10^3/uL Neutrophils (%) (Auto) 55 % Lymphocytes (%) (Auto) 29 % Monocytes (%) (Auto) 13 % Eosinophils (%) (Auto) 3 % Basophils (%) (Auto) 0 % Neutrophils # (Auto) 4.4 x10^3uL Lymphocytes # (Auto) 2.3 x10^3/uL Monocytes # (Auto) 1.0 x10^3/uL Eosinophils # (Auto) 0.3 x10^3/uL Basophils # (Auto) 0.0 x10^3/uL Sodium Level 136 mmol/L Potassium Level 3.7 mmol/L Chloride Level 103 mmol/L Carbon Dioxide Level 23 mmol/L Anion Gap 10 Blood Urea Nitrogen 8 mg/dL Creatinine 0.8 mg/dL Estimated GFR (Cockcroft-Gault) 91.4 Glucose Level 98 mg/dL Calcium Level 8.8 mg/dL Total Bilirubin 3.0 mg/dL Direct Bilirubin 0.3 mg/dL Aspartate Amino Transf (AST/SGOT) 16 U/L Alanine Aminotransferase (ALT/SGPT) 18 U/L Alkaline Phosphatase 46 U/L Total Protein 7.4 g/dL Albumin 3.9 g/dL PE: GEN: NAD LUNGS: CTAB HEART: RRR ABD: NABS, S/ND/NT NEURO/PSYCH: A & O 3 A/P: Abd pain, n/v, loose stools, chills - resolved -- DC per primary. MYAH DUVAL Jun 23, 2017 15:12
== END 2017-06-23 13:45 | disposition home or self-care (01) | DRG 392 ==
LOC: 4 NORTH 17:14
PROVIDERS: ADMIT Internal Medicine Hematology & Oncology; ATTEND Internal Medicine Hematology & Oncology
DX: K52.9 Noninfective gastroenteritis and colitis, unspecified (principal); E80.4 Gilbert syndrome; Z80.52 Family history of malignant neoplasm of bladder; Z82.3 Family history of stroke; Z82.49 Family history of ischemic heart disease and other diseases of the circulatory system
CPT/HCPCS: 36415; 76705; 80048; 80053; 80076; 85025; C9113; J1885; J2270; J2405; J2550

== ENCOUNTER 2019-10-12 08:57 | Emergency (ER) | payer SELFPAY ==
[~2019-10-12] VITALS: Ht 160 cm; Wt 69.0 kg
[2019-10-12] MEDS ORDERED: IV NORMAL SALINE 1000ML BAG 1,000 ML IV ONE (10:15)
[2019-10-12] MEDS ORDERED: FAMOTIDINE 20 MG/2 ML VIAL IVP ONE (10:15)
[2019-10-12] MEDS ORDERED: LIDO:MAALOX 1:1 20 ML SINGLE DOSE. SWSW ONE (10:15)
[2019-10-12 10:29] LABS: BASO # 0.1 x10^3/uL (0.0-0.2); BASO % 1 % (0-3); EOS % 0 % (0-3); HEMATOCRIT 41.8 % (36.0-47.0); HEMOGLOBIN 14.6 g/dL (12.0-15.5); LYMPH # 1.7 x10^3/uL (1.0-4.8); LYMPH % 23 % (24-48); MEAN CORPUSCULAR HEMOGLOBIN 33 pg (25-35); MEAN CORPUSCULAR HGB CONC 35 g/dL (31-37); MEAN CORPUSCULAR VOLUME 93 fL (79-100); MONO # 0.6 x10^3/uL (0.0-1.1); MONO % 8 % (0-9); NEUT # 5.1 x10^3/uL (1.8-7.7); NEUT % 68 % (31-73); PLATELET COUNT 250 x10^3/uL (140-400); RED BLOOD COUNT 4.48 x10^6/uL (3.50-5.40); WHITE BLOOD COUNT 7.5 x10^3/uL (4.0-11.0)
[2019-10-12 10:34] LABS: BILIRUBIN,URINE NEGATIVE (NEG); CLARITY,URINE CLEAR; COLOR,URINE YELLOW; NITRITE,URINE NEGATIVE (NEG); PROTEIN,URINE NEGATIVE (NEG-TRACE); UROBILINOGEN,URINE 0.2 mg/dL (0.2 mg/dL)
--- NOTE | 2019-10-12 10:37 | PHYS DOC ---
Past Medical History Past Medical History: No Pertinent History Past Surgical History: No Surgical History Smoking Status: Never Smoker Alcohol Use: None Drug Use: None Adult General Chief Complaint Chief Complaint: ABDOMINAL PAIN HPI HPI Patient is a 24 year old female with a history of gastritis presenting to the ED today complaining of 8 out of 10 sharp intermittent epigastric and left upper quadrant abdominal pain with nausea and vomiting that began yesterday. Patient reports being seen at [facility] where she reports they only did a test checked her urine and sent her back home. Patient denies any diarrhea. Denies any alcohol or drug use including marijuana. Denies any chance she is . Denies any exacerbating or relieving factors to her symptoms. Review of Systems Review of Systems Constitutional: Denies fever or chills [] Eyes: Denies change in visual acuity, redness, or eye pain [] HENT: Denies nasal congestion or sore throat [] Respiratory: Denies cough or shortness of breath [] Cardiovascular: No additional information not addressed in HPI [] GI: Reports left upper quadrant abdominal pain with nausea and vomiting, denies bloody stools or diarrhea [] : Denies dysuria or hematuria [] Musculoskeletal: Denies back pain or joint pain [] Integument: Denies rash or skin lesions [] Neurologic: Denies headache, focal weakness or sensory changes [] All other systems were reviewed and found to be within normal limits, except as documented in this note. Current Medications Current Medications Current Medications Medications (Trade) Dose Ordered Sig/Jose Luis Start Time Stop Time Status Last Admin Dose Admin Famotidine (Pepcid Vial) 20 mg 1X ONCE 10/12/19 10:15 10/12/19 10:16 DC 10/12/19 10:30 20 MG Multi-Ingredient Mouthwash/Gargle (Gi Cocktail) 20 ml 1X ONCE 10/12/19 10:15 10/12/19 10:16 DC 10/12/19 10:30 20 ML Sodium Chloride 1,000 ml @ 1,000 mls/hr 1X ONCE 10/12/19 10:15 10/12/19 11:14 DC 10/12/19 10:31 1,000 MLS/HR Allergies Allergies Allergies Coded Allergies Type Severity Reaction Last Updated Verified No Known Drug Allergies 12/25/13 No Physical Exam Physical Exam Constitutional: Well developed, well nourished, no acute distress, non-toxic appearance. [] HENT: Normocephalic, atraumatic, bilateral external ears normal, oropharynx moist, no oral exudates, nose normal. [] Eyes: PERRLA, EOMI, conjunctiva normal, no discharge. [] Neck: Normal range of motion, no tenderness, supple, no stridor. [] Cardiovascular:Heart rate regular rhythm, no murmur [] Lungs & Thorax: Bilateral breath sounds clear to auscultation [] Abdomen: Bowel sounds normal, soft, slight tenderness on palpation of epigastric region, no right upper quadrant or right lower quadrant tenderness, no masses, no pulsatile masses. [] Skin: Warm, dry, no erythema, no rash. [] Back: No tenderness, no CVA tenderness. [] Extremities: No tenderness, no cyanosis, no clubbing, ROM intact, no edema. [] Neurologic: Alert and oriented X 3, normal motor function, normal sensory function, no focal deficits noted. [] Psychologic: Affect normal, judgement normal, mood normal. [] Current Patient Data Vital Signs Vital Signs Date Time Temp Pulse Resp B/P (MAP) Pulse Ox O2 Delivery O2 Flow Rate FiO2 10/12/19 10:51 76 109/66 (80) 98 Room Air 10/12/19 09:05 97.8 18 97.8 Lab Values Laboratory Tests Test 10/12/19 10:00 White Blood Count 7.5 x10^3/uL (4.0-11.0) Red Blood Count 4.48 x10^6/uL (3.50-5.40) Hemoglobin 14.6 g/dL (12.0-15.5) Hematocrit 41.8 % (36.0-47.0) Mean Corpuscular Volume 93 fL (79-100) Mean Corpuscular Hemoglobin 33 pg (25-35) Mean Corpuscular Hemoglobin Concent 35 g/dL (31-37) Red Cell Distribution Width 12.0 % (11.5-14.5) Platelet Count 250 x10^3/uL (140-400) Neutrophils (%) (Auto) 68 % (31-73) Lymphocytes (%) (Auto) 23 % (24-48) L Monocytes (%) (Auto) 8 % (0-9) Eosinophils (%) (Auto) 0 % (0-3) Basophils (%) (Auto) 1 % (0-3) Neutrophils # (Auto) 5.1 x10^3/uL (1.8-7.7) Lymphocytes # (Auto) 1.7 x10^3/uL (1.0-4.8) Monocytes # (Auto) 0.6 x10^3/uL (0.0-1.1) Eosinophils # (Auto) 0.0 x10^3/uL (0.0-0.7) Basophils # (Auto) 0.1 x10^3/uL (0.0-0.2) Urine Collection Type Unknown Urine Color Yellow Urine Clarity Clear Urine pH 6.0 Urine Specific [place] 1.020 Urine Protein Negative mg/dL (NEG-TRACE) Urine Glucose (UA) Negative mg/dL (NEG) Urine Ketones (Stick) Trace mg/dL (NEG) Urine Blood Trace (NEG) Urine Nitrite Negative (NEG) Urine Bilirubin Negative (NEG) Urine Urobilinogen Dipstick 0.2 mg/dL (0.2 mg/dL) Urine Leukocyte Esterase Negative (NEG) Urine RBC Rare /HPF (0-2) Urine WBC Rare /HPF (0-4) Urine Squamous Epithelial Cells Few /LPF Urine Bacteria Few /HPF (0-FEW) Urine Mucus Marked /LPF Urine Test Negative (NEG) Sodium Level 140 mmol/L (136-145) Potassium Level 3.5 mmol/L (3.5-5.1) Chloride Level 104 mmol/L (98-107) Carbon Dioxide Level 24 mmol/L (21-32) Anion Gap 12 (6-14) Blood Urea Nitrogen 12 mg/dL (7-20) Creatinine 1.1 mg/dL (0.6-1.0) H Estimated GFR (Cockcroft-Gault) 62.1 BUN/Creatinine Ratio 11 (6-20) Glucose Level 86 mg/dL (70-99) Calcium Level 8.8 mg/dL (8.5-10.1) Total Bilirubin 1.4 mg/dL (0.2-1.0) H Aspartate Amino Transferase (AST) 18 U/L (15-37) Alanine Aminotransferase (ALT) 19 U/L (14-59) Alkaline Phosphatase 57 U/L (46-116) Total Protein 7.8 g/dL (6.4-8.2) Albumin 4.2 g/dL (3.4-5.0) Albumin/Globulin Ratio 1.2 (1.0-1.7) Lipase 69 U/L (73-393) L Urine Opiates Screen Neg (NEG) Urine Methadone Screen Neg (NEG) Urine Barbiturates Neg (NEG) Urine Phencyclidine Screen Neg (NEG) Urine Amphetamine/Methamphetamine Neg (NEG) Urine Benzodiazepines Screen Neg (NEG) Urine Cocaine Screen Neg (NEG) Urine Cannabinoids Screen Pos (NEG) Ethyl Alcohol Level < 10 mg/dL (0-10) Urine Ethyl Alcohol Neg (NEG) Laboratory Tests 10/12/19 10:00 Laboratory Tests 10/12/19 10:00 EKG EKG [] Radiology/Procedures Radiology/Procedures [] Course & Med Decision Making Course & Med Decision Making Pertinent Labs and Imaging studies reviewed. (See chart for details) This is a 24-year-old female patient presenting to the ED today with epigastric abdominal pain/left upper quadrant abdominal pain with nausea vomiting that began yesterday. History of gastritis. Patient's labs are negative for any acute findings, noted for marijuana use. Discharge to home on Pepcid. Provided GI for follow-up. Dragon Disclaimer Dragon Disclaimer This electronic medical record was generated, in whole or in part, using a voice recognition dictation system. Departure Departure Impression: Primary Impression: Acute gastritis Additional Impression: Marijuana use Disposition: HOME, SELF-CARE Condition: STABLE Referrals: NO PCP (PCP) GABBY LOMBARDI MD follow up in 1-2 weeks Patient Instructions: Gastritis, Adult, Marijuana Abuse-Brief Additional Instructions: Please consider taking [id number] Pepcid as needed for gastritis. Please consider not using marijuana. This drug is associated with increased risk of nausea and vomiting (cyclic vomiting). Please follow-up with the GI specialist provided. Scripts Ondansetron (ONDANSETRON ODT) 4 Mg Tab.rapdis 1 TAB PO PRN Q6-8HRS, #16 TAB Prov: MAGDI FERNANDEZ GREASER OPERATOR 10/12/19 Problem Qualifiers Primary Impression: Acute gastritis Gastritis type: other gastritis Gastritis bleeding: presence of bleeding unspecified Qualified Codes: K29.00 - Acute gastritis without bleeding MAGDI FERNANDEZ GREASER OPERATOR Oct 12, 2019 10:36
[2019-10-12 10:50] LABS: CALCIUM 8.8 mg/dL (8.5-10.1); CREATININE 1.1 mg/dL (0.6-1.0); GFR 62.1; POTASSIUM 3.5 mmol/L (3.5-5.1)
[2019-10-12 10:51] LABS: BARBITURATES NEG (NEG); BENZODIAZEPINES NEG (NEG); CANNABINOIDS POS (NEG); COCAINE NEG (NEG); METHADONE NEG (NEG); OPIATES NEG (NEG); PHENCYCLIDINE NEG (NEG); U PREG PATIENT NEGATIVE (NEG)
[2019-10-12 10:52] LABS: AMPHETAMINE/METHAMPHETAMINE NEG (NEG)
[2019-10-12 10:53] LABS: BACTERIA,URINE FEW /HPF (0-FEW); RBC,URINE RARE /HPF (0-2); SQUAMOUS EPITHELIAL CELL,UR FEW /LPF; WBC,URINE RARE /HPF (0-4)
[2019-10-12 10:55] LABS: ALBUMIN 4.2 g/dL (3.4-5.0); ALBUMIN/GLOBULIN RATIO 1.2 (1.0-1.7); TOTAL BILIRUBIN 1.4 mg/dL (0.2-1.0); TOTAL PROTEIN 7.8 g/dL (6.4-8.2)
[2019-10-12] MEDS ORDERED: ONDA4TAB12 PO (11:15)
[2019-10-12 12:04] VITALS: BP 112/62
== END 2019-10-12 12:10 | disposition home or self-care (01) ==
LOC: ER 08:57
DX: K29.00 Acute gastritis without bleeding (principal); R10.13 Epigastric pain; R10.12 Left upper quadrant pain; R11.2 Nausea with vomiting, unspecified; F12.90 Cannabis use, unspecified, uncomplicated
CPT/HCPCS: 36415; 80053; 80307; 81001; 81025; 83690; 85025; 96360; 99285; G0480; J3490; J7030

== ENCOUNTER 2019-10-18 07:49 | Emergency (ER) | payer SELFPAY ==
[~2019-10-18] VITALS: Ht 160 cm; Wt 66.7 kg
[~2019-10-18 07:49] MED LIST: ONDA4TAB12 PO
--- NOTE | 2019-10-18 08:09 | PHYS DOC ---
Past Medical History Past Medical History: No Pertinent History Past Surgical History: No Surgical History Smoking Status: Never Smoker Alcohol Use: None Drug Use: None Adult General Chief Complaint Chief Complaint: ABDOMINAL PAIN HPI HPI Patient is a 24 year old female who presented to ER today for evaluation of right upper quadrant abdominal pain that radiated to her back been going on for a week. Patient denies any fever, no diarrhea, no chest pain, no trouble breathing. Patient described the pain as a sharp stabbing pain. Review of Systems Review of Systems Constitutional: Denies fever or chills [] Eyes: Denies change in visual acuity, redness, or eye pain [] HENT: Denies nasal congestion or sore throat [] Respiratory: Denies cough or shortness of breath [] Cardiovascular: No additional information not addressed in HPI [] GI: Positive for abdominal pain, nausea, No vomiting, bloody stools or diarrhea [] : Denies dysuria or hematuria [] Musculoskeletal: Denies back pain or joint pain [] Integument: Denies rash or skin lesions [] Neurologic: Denies headache, focal weakness or sensory changes [] Endocrine: Denies polyuria or polydipsia [] All other systems were reviewed and found to be within normal limits, except as documented in this note. Current Medications Current Medications Current Medications Medications (Trade) Dose Ordered Sig/[facility] Start Time Stop Time Status Last Admin Dose Admin Famotidine (Pepcid Vial) 20 mg 1X ONCE 10/18/19 09:30 10/18/19 09:31 DC 10/18/19 09:34 20 MG Multi-Ingredient Mouthwash/Gargle (Gi Cocktail) 20 ml 1X ONCE 10/18/19 09:30 10/18/19 09:31 DC 10/18/19 09:34 20 ML Sodium Chloride 1,000 ml @ 1,000 mls/hr 1X ONCE 10/18/19 09:30 10/18/19 10:29 10/18/19 09:34 1,000 MLS/HR Allergies Allergies Allergies Coded Allergies Type Severity Reaction Last Updated Verified No Known Drug Allergies 12/25/13 No Physical Exam Physical Exam Constitutional: Well developed, well nourished, no acute distress, non-toxic appearance. [] HENT: Normocephalic, atraumatic, bilateral external ears normal, oropharynx moist, no oral exudates, nose normal. [] Eyes: PERRLA, EOMI, conjunctiva normal, no discharge. [] Neck: Normal range of motion, no tenderness, supple, no stridor. [] Cardiovascular:Heart rate regular rhythm, no murmur [] Lungs & Thorax: Bilateral breath sounds clear to auscultation [] Abdomen: Bowel sounds normal, soft, There is tenderness in RUQ, no masses, no pulsatile masses. [] Skin: Warm, dry, no erythema, no rash. [] Back: No tenderness, no CVA tenderness. [] Extremities: No tenderness, no cyanosis, no clubbing, ROM intact, no edema. [] Neurologic: Alert and oriented X 3, normal motor function, normal sensory function, no focal deficits noted. [] Psychologic: Affect normal, judgement normal, mood normal. [] Current Patient Data Vital Signs Vital Signs Date Time Temp Pulse Resp B/P (MAP) Pulse Ox O2 Delivery O2 Flow Rate FiO2 10/18/19 07:55 98.0 76 16 131/77 (95) 100 Room Air 98.0 Lab Values Laboratory Tests Test 10/18/19 08:25 10/18/19 09:38 White Blood Count 9.7 x10^3/uL (4.0-11.0) Red Blood Count 4.70 x10^6/uL (3.50-5.40) Hemoglobin 15.3 g/dL (12.0-15.5) Hematocrit 44.2 % (36.0-47.0) Mean Corpuscular Volume 94 fL (79-100) Mean Corpuscular Hemoglobin 33 pg (25-35) Mean Corpuscular Hemoglobin Concent 35 g/dL (31-37) Red Cell Distribution Width 12.0 % (11.5-14.5) Platelet Count 271 x10^3/uL (140-400) Neutrophils (%) (Auto) 74 % (31-73) H Lymphocytes (%) (Auto) 19 % (24-48) L Monocytes (%) (Auto) 6 % (0-9) Eosinophils (%) (Auto) 0 % (0-3) Basophils (%) (Auto) 1 % (0-3) Neutrophils # (Auto) 7.2 x10^3/uL (1.8-7.7) Lymphocytes # (Auto) 1.8 x10^3/uL (1.0-4.8) Monocytes # (Auto) 0.6 x10^3/uL (0.0-1.1) Eosinophils # (Auto) 0.0 x10^3/uL (0.0-0.7) Basophils # (Auto) 0.1 x10^3/uL (0.0-0.2) Sodium Level 140 mmol/L (136-145) Potassium Level 3.7 mmol/L (3.5-5.1) Chloride Level 103 mmol/L (98-107) Carbon Dioxide Level 25 mmol/L (21-32) Anion Gap 12 (6-14) Blood Urea Nitrogen 11 mg/dL (7-20) Creatinine 1.2 mg/dL (0.6-1.0) H Estimated GFR (Cockcroft-Gault) 56.2 BUN/Creatinine Ratio 9 (6-20) Glucose Level 108 mg/dL (70-99) H Calcium Level 9.3 mg/dL (8.5-10.1) Total Bilirubin 1.1 mg/dL (0.2-1.0) H Aspartate Amino Transferase (AST) 15 U/L (15-37) Alanine Aminotransferase (ALT) 26 U/L (14-59) Alkaline Phosphatase 58 U/L (46-116) Total Protein 7.7 g/dL (6.4-8.2) Albumin 4.6 g/dL (3.4-5.0) Albumin/Globulin Ratio 1.5 (1.0-1.7) Lipase 73 U/L (73-393) POC Urine HCG, Qualitative Hcg negative (Negative) Laboratory Tests 10/18/19 08:25 Laboratory Tests 10/18/19 08:25 EKG EKG [] Radiology/Procedures Radiology/Procedures [][facility] [address] [place] [address] IMAGING REPORT Signed PATIENT: KESHAWN BRICEÑO ACCOUNT: [id number] : 1995 LOCATION: ER AGE: 24 SEX: F EXAM STATUS: REG ER ORD. PHYSICIAN: DIDI BOOKER DO REASON: RUQ ABDOMINAL PAIN PROCEDURE: ABDOMEN LTD Examination: ABDOMEN LTD History: Abdominal pain Comparison/Correlation: 06/21/2017 abdominal ultrasound exam. Findings: Right upper quadrant ultrasound exam was performed. The gallbladder is normal with no calculi. Portal venous flow is normal. Proximal pancreas is normal. Distal pancreas obscured by bowel gas. No right upper quadrant ascites. No biliary dilatation. Common bile duct is unremarkable. No right hydronephrosis. Right kidney measures up to 9.5 cm longitudinal with normal renal contour and cortical echotexture. Inferior vena cava is unremarkable. No right upper quadrant ascites. Impression: Normal right upper quadrant ultrasound exam. Electronically signed by: Mervat Avendano MD (10/18/2019 9:45 AM) [id number] DICTATED and SIGNED BY: MERVAT AVENDANO MD DATE: 10/18/19 0945 Course & Med Decision Making Course & Med Decision Making Pertinent Labs and Imaging studies reviewed. (See chart for details) Patient is a 24-year-old female who was evaluated in the ER due to upper abdominal pain. Lab work and ultrasound her gallbladder did not reveal any acute problem. Patient is suspected TO HAVE gastritis. Patient WILL be discharged home with Prilosec and Carafate. Patient is to follow-up with her family doctor for further evaluation. Dragon Disclaimer Dragon Disclaimer This electronic medical record was generated, in whole or in part, using a voice recognition dictation system. Departure Departure Impression: Primary Impression: Acute gastritis Disposition: 01 HOME, SELF-CARE Condition: STABLE Referrals: NO PCP (PCP) FOLLOW UP WITH YOUR DOCTOR NEXT WEEK FOR REEVALUATION. Patient Instructions: Gastritis, Adult Additional Instructions: Thank you for visiting our Emergency Department. We appreciate you trusting us with your care. If any additional problems come up don't hesitate to return to visit us. Please follow up with your primary care provider so they can plan additional care if needed and know about the problem that you had. If symptoms worsen come back to the Emergency Department. Any concerning symptoms that start such as chest pain, shortness of air, weakness or numbness on one side of the body, running high fevers or any other concerning symptoms return to the ER. Scripts Omeprazole Magnesium (PRILOSEC OTC) 20 Mg Tablet. 20 MG PO DAILY for 30 Days, #30 TAB Prov: DIDI BOOKER DO 10/18/19 Sucralfate (CARAFATE) 1 Gm Tablet 1 TAB PO QID for 14 Days, #56 TAB 0 Refills Prov: DIDI BOOKER DO 10/18/19 DIDI BOOKER DO Oct 18, 2019 08:08
[2019-10-18 08:39] LABS: BASO # 0.1 x10^3/uL (0.0-0.2); BASO % 1 % (0-3); EOS % 0 % (0-3); HEMATOCRIT 44.2 % (36.0-47.0); HEMOGLOBIN 15.3 g/dL (12.0-15.5); LYMPH # 1.8 x10^3/uL (1.0-4.8); LYMPH % 19 % (24-48); MEAN CORPUSCULAR HEMOGLOBIN 33 pg (25-35); MEAN CORPUSCULAR HGB CONC 35 g/dL (31-37); MEAN CORPUSCULAR VOLUME 94 fL (79-100); MONO # 0.6 x10^3/uL (0.0-1.1); MONO % 6 % (0-9); NEUT # 7.2 x10^3/uL (1.8-7.7); NEUT % 74 % (31-73); PLATELET COUNT 271 x10^3/uL (140-400); WHITE BLOOD COUNT 9.7 x10^3/uL (4.0-11.0)
[2019-10-18 08:52] LABS: CALCIUM 9.3 mg/dL (8.5-10.1); CREATININE 1.2 mg/dL (0.6-1.0); GFR 56.2; POTASSIUM 3.7 mmol/L (3.5-5.1)
[2019-10-18 08:59] LABS: ALBUMIN 4.6 g/dL (3.4-5.0); ALBUMIN/GLOBULIN RATIO 1.5 (1.0-1.7); TOTAL BILIRUBIN 1.1 mg/dL (0.2-1.0); TOTAL PROTEIN 7.7 g/dL (6.4-8.2)
[2019-10-18] MEDS: FAMOTIDINE 20 MG/2 ML VIAL IVP ONE (09:34)
[2019-10-18] MEDS: IV NORMAL SALINE 1000ML BAG 1,000 ML IV ONE (09:34)
[2019-10-18] MEDS: LIDO:MAALOX 1:1 20 ML SINGLE DOSE. SWSW ONE (09:34)
--- NOTE | 2019-10-18 09:48 | RAD ---
Examination: ABDOMEN LTD History: Abdominal pain Comparison/Correlation: 06/21/2017 abdominal ultrasound exam. Findings: Right upper quadrant ultrasound exam was performed. The gallbladder is normal with no calculi. Portal venous flow is normal. Proximal pancreas is normal. Distal pancreas obscured by bowel gas. No right upper quadrant ascites. No biliary dilatation. Common bile duct is unremarkable. No right hydronephrosis. Right kidney measures up to 9.5 cm longitudinal with normal renal contour and cortical echotexture. Inferior vena cava is unremarkable. No right upper quadrant ascites. Impression: Normal right upper quadrant ultrasound exam. Electronically signed by: Dragan Parrish MD (10/18/2019 9:45 AM) [id number]
[2019-10-18 09:57] LABS: BILIRUBIN,URINE NEGATIVE (NEG); CLARITY,URINE CLOUDY; COLOR,URINE YELLOW; NITRITE,URINE NEGATIVE (NEG); PH,URINE 8.5 (<5.0-8.0); PROTEIN,URINE 30 mg/dL (NEG-TRACE)
[2019-10-18] MEDS ORDERED: OMEP20TA63 PO (10:21)
[2019-10-18] MEDS ORDERED: SUCR1TAB35 PO (10:21)
[2019-10-18 10:30] VITALS: BP 126/90
[2019-10-18 10:39] LABS: AMORPHOUS SEDIMENT,UR PRESENT /HPF; BACTERIA,URINE 0 /HPF (0-FEW); RBC,URINE OCC /HPF (0-2); SQUAMOUS EPITHELIAL CELL,UR MOD /LPF; WBC,URINE 0 /HPF (0-4)
== END 2019-10-18 10:58 | disposition home or self-care (01) ==
LOC: ER 07:49
DX: K29.00 Acute gastritis without bleeding (principal); R10.11 Right upper quadrant pain
CPT/HCPCS: 36415; 76705; 80053; 81001; 81025; 83690; 85025; 96361; 96374; 99285; J3490; J7030

== ENCOUNTER 2020-11-20 10:21 | Emergency (ER) | payer SELFPAY ==
[~2020-11-20] VITALS: Ht 162.6 cm; Wt 59.6 kg
[~2020-11-20 10:21] MED LIST changes: +OMEP20TA63 PO; +SUCR1TAB35 PO
[2020-11-20 11:18] LABS: BILIRUBIN,URINE NEGATIVE (NEG); CLARITY,URINE CLEAR; COLOR,URINE YELLOW; NITRITE,URINE NEGATIVE (NEG); PH,URINE 8.5 (<5.0-8.0); PROTEIN,URINE 30 mg/dL (NEG-TRACE); UROBILINOGEN,URINE 0.2 mg/dL (0.2 mg/dL)
[2020-11-20 11:22] LABS: BASO # 0.2 x10^3/uL (0.0-0.2); BASO % 1 % (0-3); EOS % 0 % (0-3); HEMATOCRIT 45.9 % (36.0-47.0); HEMOGLOBIN 15.7 g/dL (12.0-15.5); LYMPH # 2.4 x10^3/uL (1.0-4.8); LYMPH % 14 % (24-48); MEAN CORPUSCULAR HEMOGLOBIN 32 pg (25-35); MEAN CORPUSCULAR HGB CONC 34 g/dL (31-37); MEAN CORPUSCULAR VOLUME 94 fL (79-100); MONO # 0.9 x10^3/uL (0.0-1.1); MONO % 5 % (0-9); NEUT % 80 % (31-73); PLATELET COUNT 340 x10^3/uL (140-400); RED BLOOD COUNT 4.89 x10^6/uL (3.50-5.40); RED CELL DISTRIBUTION WIDTH 12.5 % (11.5-14.5); WHITE BLOOD COUNT 17.6 x10^3/uL (4.0-11.0)
[2020-11-20 11:28] LABS: BARBITURATES NEG (NEG); BENZODIAZEPINES NEG (NEG); CANNABINOIDS POS (NEG); COCAINE NEG (NEG); METHADONE NEG (NEG); OPIATES NEG (NEG); PHENCYCLIDINE NEG (NEG)
[2020-11-20 11:30] LABS: BACTERIA,URINE 0 /HPF (0-FEW); RBC,URINE 0 /HPF (0-2); WBC,URINE 0 /HPF (0-4)
[2020-11-20 11:31] LABS: AMPHETAMINE/METHAMPHETAMINE NEG (NEG)
[2020-11-20 11:39] LABS: % BANDS 9 % (0-9); % LYMPHS 8 % (24-48); % MONOS 3 % (0-10); % SEGS 80 % (35-66)
[2020-11-20 11:40] LABS: PLT ESTIMATE ADEQUATE (ADEQUATE)
[2020-11-20] MEDS: ONDANSETRON PF 4 MG/2 ML VIAL. IVP ONE (12:20)
[2020-11-20] MEDS: HALOPERIDOL LACTATE 5 MG/ML VIAL. IVP ONE (12:20)
[2020-11-20 12:37] LABS: CALCIUM 8.8 mg/dL (8.5-10.1); GFR 68.7; POTASSIUM 3.7 mmol/L (3.5-5.1)
[2020-11-20 12:42] LABS: ALBUMIN/GLOBULIN RATIO 1.1 (1.0-1.7); TOTAL BILIRUBIN 1.2 mg/dL (0.2-1.0); TOTAL PROTEIN 7.8 g/dL (6.4-8.2)
--- NOTE | 2020-11-20 12:55 | ED.ADGEN ---
Past Medical History Past Medical History: No Pertinent History Past Surgical History: No Surgical History Smoking Status: Never Smoker Alcohol Use: None Drug Use: None General Adult EDM: Chief Complaint: NAUSEA/VOMITING/DIARRHEA HPI: HPI: Patient is 25-year-old female past medical history of gastritis who presents to the emergency room complaining of upper abdominal pain, vomiting, diarrhea. She states this started last night. She states that a lot of bile that she is bringing up. She has had nausea continuously since it started. Pain in her abdomen initially felt like cramping but now feels like a sore ache. She has previously had her gallbladder out. She does occasionally use marijuana and does continue to smoke marijuana. She not tried anything for symptoms at home. States this feels very similar to her past episodes. She is not taking anything for gastritis. She denies any new symptoms. She has not had any fevers. Review of Systems: Review of Systems: Complete ROS is negative unless otherwise documented in HPI Current Medications: Current Medications Medications (Trade) Dose Ordered Sig/Jose Luis Start Time Stop Time Status Last Admin Dose Admin Haloperidol Lactate (Haldol Inj) 5 mg 1X ONCE 11/20/20 12:15 11/20/20 12:16 DC 11/20/20 12:20 5 MG Ondansetron HCl (Zofran) 4 mg 1X ONCE 11/20/20 12:15 11/20/20 12:16 DC 11/20/20 12:20 4 MG Allergies: Allergies: Allergies Coded Allergies Type Severity Reaction Last Updated Verified No Known Drug Allergies 12/25/13 No Physical Exam: PE: General: Awake, alert, NAD. Well Nourished, well hydrated. Cooperative HEENT: Atraumatic, EOMI, PERRL, airway patent, moist oral mucosa Neck: Supple, trachea midline Respiratory: CTA bilaterally, normal effort, no wheezing/crackles CV: RRR, no murmur, cap refill <2 GI: Soft, nondistended, mild upper abdominal tenderness, no masses MSK: No obvious deformities Skin: Warm, dry, intact Neuro: A&O x3, speech NL, sensory and motor grossly intact, no focal deficits Psych: Normal affect, normal mood, not suicidal or homicidal Current Patient Data: Labs: Laboratory Tests Test 11/20/20 10:25 11/20/20 10:35 11/20/20 10:41 11/20/20 12:15 Urine Collection Type Unknown Urine Color Yellow Urine Clarity Clear Urine pH 8.5 (<5.0-8.0) Urine Specific [place] 1.025 (1.000-1.030) Urine Protein 30 mg/dL (NEG-TRACE) Urine Glucose (UA) Negative mg/dL (NEG) Urine Ketones (Stick) 15 mg/dL (NEG) Urine Blood Negative (NEG) Urine Nitrite Negative (NEG) Urine Bilirubin Negative (NEG) Urine Urobilinogen Dipstick 0.2 mg/dL (0.2 mg/dL) Urine Leukocyte Esterase Negative (NEG) Urine RBC 0 /HPF (0-2) Urine WBC 0 /HPF (0-4) Urine Squamous Epithelial Cells Many /LPF Urine Bacteria 0 /HPF (0-FEW) Urine Mucus Marked /LPF Urine Opiates Screen Neg (NEG) Urine Methadone Screen Neg (NEG) Urine Barbiturates Neg (NEG) Urine Phencyclidine Screen Neg (NEG) Urine Amphetamine/Methamphetamine Neg (NEG) Urine Benzodiazepines Screen Neg (NEG) Urine Cocaine Screen Neg (NEG) Urine Cannabinoids Screen Pos (NEG) Urine Ethyl Alcohol Neg (NEG) White Blood Count 17.6 x10^3/uL (4.0-11.0) H Red Blood Count 4.89 x10^6/uL (3.50-5.40) Hemoglobin 15.7 g/dL (12.0-15.5) H Hematocrit 45.9 % (36.0-47.0) Mean Corpuscular Volume 94 fL (79-100) Mean Corpuscular Hemoglobin 32 pg (25-35) Mean Corpuscular Hemoglobin Concent 34 g/dL (31-37) Red Cell Distribution Width 12.5 % (11.5-14.5) Platelet Count 340 x10^3/uL (140-400) Neutrophils (%) (Auto) 80 % (31-73) H Lymphocytes (%) (Auto) 14 % (24-48) L Monocytes (%) (Auto) 5 % (0-9) Eosinophils (%) (Auto) 0 % (0-3) Basophils (%) (Auto) 1 % (0-3) Neutrophils # (Auto) 14.0 x10^3/uL (1.8-7.7) H Lymphocytes # (Auto) 2.4 x10^3/uL (1.0-4.8) Monocytes # (Auto) 0.9 x10^3/uL (0.0-1.1) Eosinophils # (Auto) 0.0 x10^3/uL (0.0-0.7) Basophils # (Auto) 0.2 x10^3/uL (0.0-0.2) Segmented Neutrophils % 80 % (35-66) H Band Neutrophils % 9 % (0-9) Lymphocytes % 8 % (24-48) L Monocytes % 3 % (0-10) Platelet Estimate Adequate (ADEQUATE) POC Urine HCG, Qualitative Hcg negative (Negative) Sodium Level 139 mmol/L (136-145) Potassium Level 3.7 mmol/L (3.5-5.1) Chloride Level 103 mmol/L (98-107) Carbon Dioxide Level 18 mmol/L (21-32) L Anion Gap 18 (6-14) H Blood Urea Nitrogen 13 mg/dL (7-20) Creatinine 1.0 mg/dL (0.6-1.0) Estimated GFR (Cockcroft-Gault) 68.7 BUN/Creatinine Ratio 13 (6-20) Glucose Level 120 mg/dL (70-99) H Calcium Level 8.8 mg/dL (8.5-10.1) Total Bilirubin 1.2 mg/dL (0.2-1.0) H Aspartate Amino Transferase (AST) 21 U/L (15-37) Alanine Aminotransferase (ALT) 19 U/L (14-59) Alkaline Phosphatase 71 U/L (46-116) Total Protein 7.8 g/dL (6.4-8.2) Albumin 4.0 g/dL (3.4-5.0) Albumin/Globulin Ratio 1.1 (1.0-1.7) Laboratory Tests 11/20/20 10:35 Laboratory Tests 11/20/20 12:15 Vital Signs: Vital Signs Date Time Temp Pulse Resp B/P (MAP) Pulse Ox O2 Delivery O2 Flow Rate FiO2 11/20/20 13:35 70 119/79 (92) 97 Room Air 11/20/20 10:43 97.6 18 97.6 EKG: EKG: [] Heart Score: C/O Chest Pain: N/A Risk Factors: Risk Factors: DM, Current or recent (<one month) smoker, HTN, HLP, family history of CAD, obesity. Risk Scores: Score 0 - 3: 2.5% MACE over next 6 weeks - Discharge Home Score 4 - 6: 20.3% MACE over next 6 weeks - Admit for Clinical Observation Score 7 - 10: 72.7% MACE over next 6 weeks - Early Invasive Strategies Radiology/Procedures: Radiology/Procedures: [] Course & Med Decision Making: Course & Med Decision Making Pertinent Labs and Imaging studies reviewed. (See chart for details) Patient 25-year-old female presents to the emergency room complaining of abdominal pain and vomiting. This is similar to her episodes in the past. She does not have any new symptoms and does not need a new work-up today. Lab work will be done to rule out any signs of dehydration, electrolyte abnormalities, kidney dysfunction. UA will be done to rule out any kind of infection. Patient will be given fluids, Zofran, Haldol for symptom relief. Lab work shows very mild changes consistent with vomiting. Patient feels better would like to go home. Patient's test results and vitals while in the ED were fully reviewed and discussed with the patient. Patient is stable and at this time does not need admission to the hospital. We have discussed strict return precautions and the importance of following up with their Primary Care Physician. Patient stated understanding and was given an opportunity to ask any questions. Patient is in agreement with plan. Justin Disclaimer: Justin Disclaimer: This electronic medical record was generated, in whole or in part, using a voice recognition dictation system. Departure Departure Impression: Primary Impression: Acute gastritis Additional Impression: Cyclical vomiting Disposition: HOME / SELF CARE / HOMELESS Condition: STABLE Referrals: NO PCP (PCP) Patient Instructions: Cyclic Vomiting Syndrome Problem Qualifiers RAVEN RIVAS MD Nov 20, 2020 12:54
[2020-11-20 13:35] VITALS: BP 119/79
[2020-11-20] MEDS ORDERED: SUCR1TAB35 PO (13:58)
[2020-11-20] MEDS ORDERED: ESOM20CA PO (13:58)
== END 2020-11-20 13:55 | disposition home or self-care (01) ==
LOC: ER 10:21
DX: K29.00 Acute gastritis without bleeding (principal); R11.2 Nausea with vomiting, unspecified; R10.10 Upper abdominal pain, unspecified; R19.7 Diarrhea, unspecified
CPT/HCPCS: 36415; 80053; 80307; 81001; 81025; 85007; 85025; 96374; 96375; 99284; J1630; J2405

== ENCOUNTER 2021-08-06 09:07 | Emergency (ER) | payer SELFPAY ==
[~2021-08-06] VITALS: Ht 160 cm; Wt 79.7 kg
[~2021-08-06 09:07] MED LIST changes: +ESOM20CA PO
[2021-08-06] MEDS ORDERED: IV NORMAL SALINE 1000ML BAG 1,000 ML IV ONE (09:30)
[2021-08-06] MEDS ORDERED: ONDANSETRON PF 4 MG/2 ML VIAL. IVP ONE (09:30)
--- NOTE | 2021-08-06 09:35 | ED.ADGEN ---
Past Medical History Past Medical History: No Pertinent History Additional Past Medical Histor: Gastritis Past Surgical History: Cholecystectomy Smoking Status: Never Smoker Alcohol Use: None Drug Use: None General Adult EDM: Chief Complaint: NAUSEA/VOMITING/DIARRHEA HPI: HPI: Patient is a 26 year old female coming in for nonbloody nonbilious emesis started this morning, patient states she drinks water just prior to vomiting starting. Has had several episodes of watery diarrhea. Patient has a history of numerous ER visits for similar presentations, patient states she has had epigastric pain and tried taking some Tums but threw them up. Does not take any regular antacid medication Review of Systems: Review of Systems: All other systems within normal limits except for as noted in the HPI Current Medications: Current Medications Medications (Trade) Dose Ordered Sig/Jose Luis Start Time Stop Time Status Last Admin Dose Admin Diphenhydramine HCl (Benadryl) 25 mg 1X ONCE 08/06/21 11:30 08/06/21 11:31 DC 08/06/21 11:51 25 MG Famotidine (Pepcid Vial) 20 mg 1X ONCE 08/06/21 12:15 08/06/21 12:20 DC 08/06/21 12:15 20 MG Haloperidol Lactate (Haldol Inj) 5 mg 1X ONCE 08/06/21 11:30 08/06/21 11:31 DC 08/06/21 11:52 5 MG Multi-Ingredient Mouthwash/Gargle (Gi Cocktail) 20 ml 1X ONCE 08/06/21 12:15 08/06/21 12:20 DC 08/06/21 12:15 20 ML Ondansetron HCl (Zofran) 4 mg 1X ONCE 08/06/21 09:30 08/06/21 09:31 DC 08/06/21 09:30 4 MG Sodium Chloride 1,000 ml @ 1,000 mls/hr 1X ONCE 08/06/21 09:30 08/06/21 10:29 DC 08/06/21 09:30 1,000 MLS/HR Allergies: Allergies: Allergies Coded Allergies Type Severity Reaction Last Updated Verified No Known Drug Allergies 12/25/13 No Physical Exam: PE: Constitutional: Well developed, well nourished, no acute distress, non-toxic appearance. [] HENT: Normocephalic, atraumatic, bilateral external ears normal, nose normal. [] Eyes: PERRLA, conjunctiva normal, no discharge. [] Neck: No rigidity, supple, no stridor. [] Cardiovascular: Regular rate and rhythm, brisk cap refill [] Lungs & Thorax: Non labored symmetric respirations, no tachypnea or respiratory distress [] Abdomen: Soft, nondistended, epigastric tenderness . Skin: Warm, dry, no erythema, no rash. [] Back: Unremarkable Extremities: No deformities, range of motion grossly intact, no lower extremity edema [] Neurologic: Alert and oriented X 3, no focal deficits noted. [] Psychologic: Affect normal, judgement normal, mood normal. [] Current Patient Data: Labs: Laboratory Tests Test 08/06/21 09:10 08/06/21 09:15 08/06/21 09:22 Urine Collection Type Unknown Urine Color Yellow Urine Clarity Turbid Urine pH 8.5 (<5.0-8.0) Urine Specific [place] 1.020 (1.000-1.030) Urine Protein 30 mg/dL (NEG-TRACE) Urine Glucose (UA) Negative mg/dL (NEG) Urine Ketones (Stick) Negative mg/dL (NEG) Urine Blood Negative (NEG) Urine Nitrite Negative (NEG) Urine Bilirubin Negative (NEG) Urine Urobilinogen Dipstick 1.0 mg/dL (0.2 mg/dL) Urine Leukocyte Esterase Negative (NEG) Urine RBC 0 /HPF (0-2) Urine WBC 0 /HPF (0-4) Urine Squamous Epithelial Cells Few /LPF Urine Amorphous Sediment Present /HPF Urine Bacteria 0 /HPF (0-FEW) Urine Opiates Screen Neg (NEG) Urine Methadone Screen Neg (NEG) Urine Barbiturates Neg (NEG) Urine Phencyclidine Screen Neg (NEG) Urine Amphetamine/Methamphetamine Neg (NEG) Urine Benzodiazepines Screen Neg (NEG) Urine Cocaine Screen Neg (NEG) Urine Cannabinoids Screen Pos (NEG) Urine Ethyl Alcohol Neg (NEG) POC Urine HCG, Qualitative Hcg negative (Negative) White Blood Count 14.9 x10^3/uL (4.0-11.0) H Red Blood Count 4.94 x10^6/uL (3.50-5.40) Hemoglobin 15.6 g/dL (12.0-15.5) H Hematocrit 46.8 % (36.0-47.0) Mean Corpuscular Volume 95 fL (79-100) Mean Corpuscular Hemoglobin 32 pg (25-35) Mean Corpuscular Hemoglobin Concent 33 g/dL (31-37) Red Cell Distribution Width 12.5 % (11.5-14.5) Platelet Count 274 x10^3/uL (140-400) Neutrophils (%) (Auto) 77 % (31-73) H Lymphocytes (%) (Auto) 15 % (24-48) L Monocytes (%) (Auto) 7 % (0-9) Eosinophils (%) (Auto) 0 % (0-3) Basophils (%) (Auto) 1 % (0-3) Neutrophils # (Auto) 11.5 x10^3/uL (1.8-7.7) H Lymphocytes # (Auto) 2.3 x10^3/uL (1.0-4.8) Monocytes # (Auto) 1.0 x10^3/uL (0.0-1.1) Eosinophils # (Auto) 0.0 x10^3/uL (0.0-0.7) Basophils # (Auto) 0.1 x10^3/uL (0.0-0.2) Sodium Level 140 mmol/L (136-145) Potassium Level 4.1 mmol/L (3.5-5.1) Chloride Level 102 mmol/L (98-107) Carbon Dioxide Level 22 mmol/L (21-32) Anion Gap 16 (6-14) H Blood Urea Nitrogen 10 mg/dL (7-20) Creatinine 0.9 mg/dL (0.6-1.0) Estimated GFR (Cockcroft-Gault) 76.9 BUN/Creatinine Ratio 11 (6-20) Glucose Level 121 mg/dL (70-99) H Calcium Level 9.3 mg/dL (8.5-10.1) Total Bilirubin 1.5 mg/dL (0.2-1.0) H Aspartate Amino Transferase (AST) 13 U/L (15-37) L Alanine Aminotransferase (ALT) 21 U/L (14-59) Alkaline Phosphatase 86 U/L (46-116) Total Protein 7.9 g/dL (6.4-8.2) Albumin 4.3 g/dL (3.4-5.0) Albumin/Globulin Ratio 1.2 (1.0-1.7) Lipase 44 U/L (73-393) L Laboratory Tests 08/06/21 09:22 Laboratory Tests 08/06/21 09:22 Vital Signs: Vital Signs Date Time Temp Pulse Resp B/P (MAP) Pulse Ox O2 Delivery O2 Flow Rate FiO2 08/06/21 12:12 64 16 141/69 (93) 99 Room Air 08/06/21 09:14 97.6 97.6 EKG: EKG: [] Heart Score: C/O Chest Pain: No Risk Factors: Risk Factors: DM, Current or recent (<one month) smoker, HTN, HLP, family history of CAD, obesity. Risk Scores: Score 0 - 3: 2.5% MACE over next 6 weeks - Discharge Home Score 4 - 6: 20.3% MACE over next 6 weeks - Admit for Clinical Observation Score 7 - 10: 72.7% MACE over next 6 weeks - Early Invasive Strategies Radiology/Procedures: Radiology/Procedures: [] Course & Med Decision Making: Course & Med Decision Making Pertinent Labs and Imaging studies reviewed. (See chart for details) Patient feeling better and tolerating p.o. [] Dragon Disclaimer: Dragon Disclaimer: This electronic medical record was generated, in whole or in part, using a voice recognition dictation system. Departure Departure Impression: Primary Impression: Abdominal pain Disposition: HOME / SELF CARE / HOMELESS Condition: STABLE Referrals: NO PCP (PCP) Patient Instructions: Gastritis, Adult Scripts Omeprazole (OMEPRAZOLE) 20 Mg Tablet.dr 1 TAB PO DAILY for antacid, #30 TAB 3 Refills Prov: CHASE MCKINLEY MD 08/06/21 Sucralfate (SUCRALFATE) 1 Gm Tablet 1 TAB PO TID PRN for ABDOMINAL PAIN, #90 TAB 11 Refills Prov: CHASE MCKINLEY MD 08/06/21 CHASE MCKINLEY MD Aug 06, 2021 09:35
[2021-08-06 09:59] LABS: CALCIUM 9.3 mg/dL (8.5-10.1); CREATININE 0.9 mg/dL (0.6-1.0); GFR 76.9; POTASSIUM 4.1 mmol/L (3.5-5.1)
[2021-08-06 10:00] LABS: BASO # 0.1 x10^3/uL (0.0-0.2); BASO % 1 % (0-3); EOS % 0 % (0-3); HEMATOCRIT 46.8 % (36.0-47.0); HEMOGLOBIN 15.6 g/dL (12.0-15.5); LYMPH # 2.3 x10^3/uL (1.0-4.8); LYMPH % 15 % (24-48); MEAN CORPUSCULAR HEMOGLOBIN 32 pg (25-35); MEAN CORPUSCULAR HGB CONC 33 g/dL (31-37); MEAN CORPUSCULAR VOLUME 95 fL (79-100); MONO % 7 % (0-9); NEUT # 11.5 x10^3/uL (1.8-7.7); NEUT % 77 % (31-73); PLATELET COUNT 274 x10^3/uL (140-400); RED BLOOD COUNT 4.94 x10^6/uL (3.50-5.40); RED CELL DISTRIBUTION WIDTH 12.5 % (11.5-14.5); WHITE BLOOD COUNT 14.9 x10^3/uL (4.0-11.0)
[2021-08-06 10:01] LABS: BARBITURATES NEG (NEG); BENZODIAZEPINES NEG (NEG); CANNABINOIDS POS (NEG); COCAINE NEG (NEG); METHADONE NEG (NEG); OPIATES NEG (NEG); PHENCYCLIDINE NEG (NEG)
[2021-08-06 10:02] LABS: AMPHETAMINE/METHAMPHETAMINE NEG (NEG)
[2021-08-06 10:05] LABS: ALBUMIN 4.3 g/dL (3.4-5.0); ALBUMIN/GLOBULIN RATIO 1.2 (1.0-1.7); TOTAL BILIRUBIN 1.5 mg/dL (0.2-1.0); TOTAL PROTEIN 7.9 g/dL (6.4-8.2)
[2021-08-06 10:09] LABS: BILIRUBIN,URINE NEGATIVE (NEG); CLARITY,URINE TURBID; COLOR,URINE YELLOW; NITRITE,URINE NEGATIVE (NEG); PH,URINE 8.5 (<5.0-8.0); PROTEIN,URINE 30 mg/dL (NEG-TRACE)
[2021-08-06 10:26] LABS: BACTERIA,URINE 0 /HPF (0-FEW); RBC,URINE 0 /HPF (0-2); WBC,URINE 0 /HPF (0-4)
[2021-08-06 10:27] LABS: AMORPHOUS SEDIMENT,UR PRESENT /HPF
[2021-08-06] MEDS ORDERED: diphenhydrAMINE 50 MG/ML VIAL IVP ONE (11:30)
[2021-08-06] MEDS ORDERED: HALOPERIDOL LACTATE 5 MG/ML VIAL. IVP ONE (11:30)
[2021-08-06] MEDS ORDERED: FAMOTIDINE 20 MG/2 ML VIAL IVP ONE (12:15)
[2021-08-06] MEDS ORDERED: LIDO:MAALOX 1:1 20 ML SINGLE DOSE. SWSW ONE (12:15)
[2021-08-06 13:16] VITALS: BP 134/78
[2021-08-06] MEDS ORDERED: OMEP20TA8 PO (13:16)
[2021-08-06] MEDS ORDERED: SUCR1TAB PO (13:16)
== END 2021-08-06 13:37 | disposition home or self-care (01) ==
LOC: ER 09:07
DX: R10.13 Epigastric pain (principal); R11.2 Nausea with vomiting, unspecified; R19.7 Diarrhea, unspecified; Z90.49 Acquired absence of other specified parts of digestive tract
CPT/HCPCS: 36415; 80053; 80307; 81001; 81025; 83690; 85025; 96361; 96374; 96375; 99285; J1200; J1630; J2405; J3490; J7030

== ENCOUNTER 2021-11-17 05:16 | Emergency (ER) | payer SELFPAY ==
[~2021-11-17] VITALS: Ht 160 cm; Wt 76.3 kg
[~2021-11-17 05:16] MED LIST changes: +OMEP20TA91 PO; +SUCR1TAB PO
--- NOTE | 2021-11-17 06:25 | PHYS DOC ---
Past Medical History Past Medical History: No Pertinent History Additional Past Medical Histor: Gastritis Past Surgical History: Cholecystectomy Smoking Status: Never Smoker Alcohol Use: None Drug Use: None General Adult EDM: Chief Complaint: NAUSEA/VOMITING/DIARRHEA HPI: HPI: Patient is a 26 year old female presents with nausea vomiting diarrhea. Patient states that started on Tuesday or 6 days ago. Patient states that she has not been tolerating p.o. States the only thing that helps is hot showers. No known sick contacts. Patient states that she has had similar episodes in the past. Admits to using marijuana. Denies any fevers or chills. Last normal men strual period was last week of October. Review of Systems: Review of Systems: Constitutional: Denies fever or chills. [] Eyes: Denies change in visual acuity. [] HENT: Denies nasal congestion or sore throat. [] Respiratory: Denies cough or shortness of breath. [] Cardiovascular: Denies chest pain or edema. [] GI: Nausea vomiting diarrhea poor p.o. intake] : Denies dysuria. [] Musculoskeletal: Denies back pain or joint pain. [] Integument: Denies rash. [] Neurologic: Denies headache, focal weakness or sensory changes. [] Endocrine: Denies polyuria or polydipsia. [] Lymphatic: Denies swollen glands. [] Psychiatric: Denies depression or anxiety. [] Heart Score: C/O Chest Pain: No Risk Factors: Risk Factors: DM, Current or recent (<one month) smoker, HTN, HLP, family history of CAD, obesity. Risk Scores: Score 0 - 3: 2.5% MACE over next 6 weeks - Discharge Home Score 4 - 6: 20.3% MACE over next 6 weeks - Admit for Clinical Observation Score 7 - 10: 72.7% MACE over next 6 weeks - Early Invasive Strategies Current Medications: Current Medications Medications (Trade) Dose Ordered Sig/Jose Luis Start Time Stop Time Status Last Admin Dose Admin Haloperidol Lactate (Haldol Inj) 2 mg 1X ONCE 11/17/21 06:15 11/17/21 06:16 UNV Ketorolac Tromethamine (Toradol 30mg Vial) 15 mg 1X ONCE 11/17/21 06:15 11/17/21 06:16 UNV Ringer's Solution 1,000 ml @ 1,000 mls/hr Q1H 4/12/22 06:15 11/17/21 07:14 UNV Allergies: Allergies: Allergies Coded Allergies Type Severity Reaction Last Updated Verified No Known Drug Allergies 11/17/21 No Physical Exam: PE: Constitutional: Ill-appearing actively vomiting well developed, HENT: Normocephalic, atraumatic, bilateral external ears normal, oropharynx moist, no oral exudates, nose normal. [] Eyes: PERRLA, EOMI, conjunctiva normal, no discharge. [] Neck: Normal range of motion, no tenderness, supple, no stridor. [] Cardiovascular:Heart rate regular rhythm, no murmur [] Lungs & Thorax: Bilateral breath sounds clear to auscultation [] Abdomen: Diffusely tender abdomen no rebound tenderness abdomen is soft. Hyperactive bowel sounds Skin: Warm, dry, no erythema, no rash. [] Back: No tenderness, no CVA tenderness. [] Extremities: No tenderness, no cyanosis, no clubbing, ROM intact, no edema. [] Neurologic: Alert and oriented X 3, normal motor function, normal sensory function, no focal deficits noted. [] Psychologic: Affect normal, judgement normal, mood normal. [] EKG: EKG: [] Sinus rhythm 74. QTC of 445 otherwise normal EKG Radiology/Procedures: Radiology/Procedures: []CT ABDOMEN+PELVIS W History: Intractable vomiting. Comparison: CT abdomen and pelvis 12/14/2020 Technique: CT abdomen and pelvis with intravenous contrast. Findings: The lung bases are clear. The liver is within normal limits. The gallbladder is surgically absent. The pancreas, spleen, adrenal glands and kidneys are normal. The stomach and small bowel are within normal limits. Terminal ileum is unremarkable. The appendix is normal. There is fatty infiltration of the colonic wall. No pericolonic inflammatory changes. Uterus and adnexa are normal. Normal bladder. No intra-abdominal free air or free fluid. No adenopathy. The vasculature is within normal limits. Osseous structures and soft tissues are unremarkable. Impression: 1. No acute abdominopelvic findings. Course & Med Decision Making: Course & Med Decision Making Pertinent Labs and Imaging studies reviewed. (See chart for details) [] Patient's vomiting has ceased. Patient given strict return precautions marijuana cessation was discussed [place] Disclaimer: Dragon Disclaimer: This electronic medical record was generated, in whole or in part, using a voice recognition dictation system. Departure Departure Referrals: NO PCP (PCP) PIETRO ALEXANDRE DO Nov 17, 2021 06:25
[2021-11-17] MEDS ORDERED: IV RINGERS,LACTATED 1000ML 1,000 ML IV SCH (06:30)
[2021-11-17] MEDS ORDERED: KETOROLAC 15 MG/ML VIAL. IVP ONE (06:30)
[2021-11-17] MEDS ORDERED: HALOPERIDOL LACTATE 5 MG/ML VIAL. IM ONE (06:30)
[2021-11-17 06:38] LABS: CALCIUM 8.9 mg/dL (8.5-10.1); CREATININE 1.1 mg/dL (0.6-1.0); POTASSIUM 3.4 mmol/L (3.5-5.1)
[2021-11-17 06:40] LABS: BASO # 0.1 x10^3/uL (0.0-0.2); BASO % 1 % (0-3); EOS % 0 % (0-3); HEMATOCRIT 43.4 % (36.0-47.0); HEMOGLOBIN 15.1 g/dL (12.0-15.5); LYMPH # 1.7 x10^3/uL (1.0-4.8); LYMPH % 13 % (24-48); MEAN CORPUSCULAR HEMOGLOBIN 33 pg (25-35); MEAN CORPUSCULAR HGB CONC 35 g/dL (31-37); MEAN CORPUSCULAR VOLUME 94 fL (79-100); MONO # 1.2 x10^3/uL (0.0-1.1); MONO % 9 % (0-9); NEUT # 10.1 x10^3/uL (1.8-7.7); NEUT % 78 % (31-73); PLATELET COUNT 311 x10^3/uL (140-400); RED BLOOD COUNT 4.63 x10^6/uL (3.50-5.40); RED CELL DISTRIBUTION WIDTH 13.2 % (11.5-14.5); WHITE BLOOD COUNT 13.1 x10^3/uL (4.0-11.0)
[2021-11-17 06:45] LABS: ALBUMIN 4.6 g/dL (3.4-5.0); ALBUMIN/GLOBULIN RATIO 1.5 (1.0-1.7); TOTAL BILIRUBIN 1.8 mg/dL (0.2-1.0); TOTAL PROTEIN 7.7 g/dL (6.4-8.2)
[2021-11-17 07:26] LABS: BARBITURATES NEG (NEG); BENZODIAZEPINES NEG (NEG); CANNABINOIDS POS (NEG); COCAINE NEG (NEG); METHADONE NEG (NEG); OPIATES NEG (NEG); PHENCYCLIDINE NEG (NEG)
[2021-11-17 07:27] LABS: AMPHETAMINE/METHAMPHETAMINE NEG (NEG)
[2021-11-17] MEDS ORDERED: ONDANSETRON PF 4 MG/2 ML VIAL. IVP ONE (07:45)
[2021-11-17] MEDS ORDERED: IOHEXOL 300 MG/ML 100ML VIAL. IV ONE (08:00)
[2021-11-17] MEDS ORDERED: CONTRAST GIVEN. MC PRN (08:00)
[2021-11-17] MEDS ORDERED: IV DEXTROSE 5 %-0.45 % NACL 1,000 ML IV ONE (08:00)
[2021-11-17 08:16] LABS: AMORPHOUS SEDIMENT,UR PRESENT /HPF; RBC,URINE OCC /HPF (0-2)
[2021-11-17 08:17] LABS: BACTERIA,URINE MOD /HPF (0-FEW)
--- NOTE | 2021-11-17 08:33 | RAD ---
CT ABDOMEN+PELVIS W History: Intractable vomiting. Comparison: CT abdomen and pelvis 12/14/2020 Technique: CT abdomen and pelvis with intravenous contrast. Findings: The lung bases are clear. The liver is within normal limits. The gallbladder is surgically absent. Th e pancreas, spleen, adrenal glands and kidneys are normal. The stomach and small bowel are within normal limits. Terminal ileum is unremarkable. The appendix is normal. There is fatty infiltration of the colonic wall. No pericolonic inflammatory changes. Uterus and adnexa are normal. Normal bladder. No intra-abdominal free air or free fluid. No adenopath y. The vasculature is within normal limits. Osseous structures and soft tissues are unremarkable. Impression: 1. No acute abdominopelvic findings. ------ Exposure: One or more of the following individualized dose reduction techniques were utilized for thi s examination: 1. Automated exposure control 2. Adjustment of the mA and/or kV according to patient size 3. Use of iterative reconstruction technique. Electronically signed by: Conner Constantino MD (11/17/2021 8:30 AM) [id number]
--- NOTE | 2021-11-17 09:33 | EKG ---
[facility] [address] [place] [address] Test Date: 2021-11-17 Test Time: 06:46:21 Pat Name: KESHAWN BRICEÑO Department: Room: Gender: [employer] Reg[employer]: : [id number] Requested By: PIETRO ALEXANDRE Order Number: [id number] Reading MD: Bean Soliz Measurements Intervals [place] Rate: 74 P: 44 LA: 158 QRS: 65 QRSD: 74 T: 28 QT: 396 QTc: 445 Interpretive Statements SINUS RHYTHM Electronically Signed On 11-20-2021 13:44:05 CDT by Bean Soliz
[2021-11-17] MEDS ORDERED: ONDA4TAB12 PO (09:37)
[2021-11-17 09:56] VITALS: BP 144/91
== END 2021-11-17 10:04 | disposition home or self-care (01) ==
LOC: ER 05:16
DX: R11.2 Nausea with vomiting, unspecified (principal); R19.7 Diarrhea, unspecified; Z90.49 Acquired absence of other specified parts of digestive tract
CPT/HCPCS: 36415; 74177; 80053; 80307; 81001; 81025; 83690; 85025; 93005; 96361; 96365; 96372; 96375; 99285; J1630; J1885; J2060; J2405; J7042; J7120; Q9967